=== PATIENT | female | born 1970 | race Caucasian/White ===

== ENCOUNTER 2017-12-23 10:37 | Outpatient (CLI) | payer OTHER ==
--- NOTE | 2017-12-30 15:49 | MMO ---
BILATERAL SCREENING MAMMOGRAMS: Date: 12/23/17 Comparison made to prior exam from [facility] dated 2014. This patient's mammogram was interpreted with the assistance of computer-aided detection. FINDINGS: Heterogeneously dense glandular pattern. There are scattered benign-appearing calcifications. No evid ence of mass or distortion. Given the differences in technique on the comparison exam, there does not appear to be significant change. Recommend one year follow-up. IMPRESSION: BIRADS 2: Benign Finding(s) POS: GILBERTO
== END 2017-12-23 10:38 | disposition home or self-care (01) ==
LOC: SCSMAMMO 10:37
PROVIDERS: ATTEND Family Medicine
DX: Z12.31 Encounter for screening mammogram for malignant neoplasm of breast (principal)
CPT/HCPCS: 77067

== ENCOUNTER 2018-09-02 09:41 | Outpatient (CLI) | payer OTHER ==
--- NOTE | 2018-09-02 11:55 | ULT ---
ULTRASOUND ABDOMEN: Date: 09/01/18 HISTORY: Abdominal pain, nausea and vomiting. FINDINGS: The liver demonstrates increased echogenicity consistent with fatty infiltration. There is a 1.9 cm c yst in the right lobe of the liver. No intrahepatic ductal dilatation is seen. The spleen, gallbladde r, left kidney, and visualized portions of the pancreas, aorta, and IVC appear normal. There is a 1.4 cm cyst in the right kidney. No free fluid is seen. No hydronephrosis noted on either side. IMPRESSION: 1. Fatty liver. 2. Right liver lobe cyst. 3. Right renal cyst. 4. No evidence of cholelithiasis. POS: C
== END 2018-09-02 09:42 | disposition home or self-care (01) ==
LOC: ULT 09:41
PROVIDERS: ATTEND Internal Medicine Gastroenterology
DX: R11.2 Nausea with vomiting, unspecified (principal); R10.9 Unspecified abdominal pain; K76.0 Fatty (change of) liver, not elsewhere classified; N28.1 Cyst of kidney, acquired; K76.89 Other specified diseases of liver
CPT/HCPCS: 76700

== ENCOUNTER 2018-09-07 12:21 | Day surgery (SDC) | payer OTHER ==
[2018-09-06 14:16] VITALS: BMI 21.7
--- NOTE | 2018-09-06 14:44 | HP ---
DATE OF ADMISSION: 09/07/2018 HISTORY OF PRESENT ILLNESS: This is a 48-year-old female referred to me for evaluation of recurrent nausea and vomiting. The patient has these symptoms almost an year. Every morning, she wakes up with upset stomach and she gags and vomits. The rest of the day, she feels fine. She has no abdominal pain. She has a history of chronic acid reflux. No dysuria or odynophagia. The symptoms are difficult to explain. The patient to undergo EGD, because of the above reason. ALLERGIES: None. MEDICAL ILLNESS: 1. Chronic acid reflux. 2. Chronic anxiety and depression. 3. Asthma. 4. Panic attack. 5. Sinus tachycardia. . PHYSICAL EXAMINATION: GENERAL: She is thin built, appears comfortable. VITAL SIGNS: Pulse is 70, blood pressure 110/70. HEENT: Conjunctivae are clear. CARDIOVASCULAR: First and second heart sounds are normal. LUNGS: Clear to auscultation. ABDOMEN: Soft to palpate. No organomegaly. No tenderness. No masses. ADMITTING DIAGNOSIS: A 48-year-old female with persistent nausea and vomiting with no abdominal pain. The patient will undergo EGD. MTDD
[2018-09-07] MEDS ORDERED: Lidocaine 1% PF 5 ML VIAL ONE (17:11)
[2018-09-07] MEDS ORDERED: PROPOFOL 200 MG/20 ML VIAL ONE (17:11)
--- NOTE | 2018-09-07 23:47 | OP ---
DATE OF PROCEDURE: 09/07/2018 OPERATIVE PROCEDURE: Esophagogastroduodenoscopy with biopsy. PREOPERATIVE DIAGNOSIS: A 48-year-old, female with mild abdominal discomfort, persistent nausea and vomiting. Nausea and vomiting occurs mostly in the morning. The patient is undergoing an esophagogastroduodenoscopy. POSTOPERATIVE DIAGNOSES: 1. Normal esophageal mucosa. 2. Normal gastroesophageal junction. 3. Gastric mucosa, mildly hyperemic, and nonspecific. 5. Normal duodenum. PROCEDURE IN DETAIL: The patient was placed on her left lateral position and was given sedation by Anesthesia Department. A Pentax video gastroscope under direct vision was passed down the oropharynx, past the GE junction, into the stomach and subsequently into the descending duodenum. The esophageal mucosa appeared normal. The GE junction, no pathology seen. Retroflexion failed to show any pathology in the fundus, cardia. The gastric body and antrum was mildly hyperemic and edematous. mucosa was seen .. The duodenal bulb, descending duodenum, no pathology seen. The stomach was decompressed and the scope removed. DISCHARGE PLANNING: This is a 48-year-old, female with abdominal pain , nausea, and vomiting. The patient underwent an EGD and the EGD was basically negative. The patient's abdominal sonogram largely showed negative for any pathology. DISCHARGE RECOMMENDATIONS: 1. The patient advised to increase alprazolam to 0.5 mg p.o. twice a day. 2. Continue Paxil 20 once a day. 3. We will await the gastric biopsy and decide further course of treatment. MTDD
== END 2018-09-07 16:58 | disposition home or self-care (01) ==
LOC: SDC 12:21
PROVIDERS: ATTEND Internal Medicine Gastroenterology
PROC: 0DB68ZX Excision of Stomach, Via Natural or Artificial Opening Endoscopic, Diagnostic (ICD-10-PCS; principal; 2018-09-07)
DX: R11.2 Nausea with vomiting, unspecified (principal); K21.9 Gastro-esophageal reflux disease without esophagitis; F41.9 Anxiety disorder, unspecified; F32.9 Major depressive disorder, single episode, unspecified; J45.909 Unspecified asthma, uncomplicated; F41.0 Panic disorder [episodic paroxysmal anxiety]; Z79.899 Other long term (current) drug therapy
CPT/HCPCS: 88305; 88312; J2001; J2704

== ENCOUNTER 2018-11-08 18:15 | Emergency (ER) | payer OTHER ==
[2018-11-08] MEDS ORDERED: EPINEPHrine 1 MG/ML AMP ONE (18:31)
[2018-11-08] MEDS ORDERED: Famotidine/PF 20 mg/2ml Vial ONE (18:41)
[2018-11-08] MEDS ORDERED: methylPREDNISolone Sod Succ/PF 125 MG/2 ML VIAL ONE (18:41)
[2018-11-08] MEDS ORDERED: diphenhydrAMINE 50 MG/ML VIAL ONE (18:41)
[2018-11-08] MEDS ORDERED: Water For Inject, Bacteriostat 30 ML ONE (18:42)
[2018-11-08] MEDS ORDERED: Sodium Chloride For Inhalation 0.9% 3 ML NEB ONE (18:44)
[2018-11-08] MEDS ORDERED: Albuterol Sulfate 2.5 mg/0.5 ml Neb ONE (18:44)
== END 2018-11-08 22:51 | disposition home or self-care (01) ==
LOC: SCSER 18:15
DX: L50.0 Allergic urticaria (principal); E78.5 Hyperlipidemia, unspecified; F41.9 Anxiety disorder, unspecified; F32.9 Major depressive disorder, single episode, unspecified; Z79.899 Other long term (current) drug therapy
CPT/HCPCS: 93005; 94640; 96361; 96372; 96374; 96375; J0171; J1200; J2930; J7611; S0028

== ENCOUNTER 2018-11-10 08:39 | Outpatient (CLI) | payer OTHER ==
[2018-11-10] MEDS ORDERED: Iopamidol 300 61% 100 ML VIAL FS ONE (09:00)
--- NOTE | 2018-11-10 11:01 | CT ---
PRE AND POST CONTRAST ENHANCED CT BRAIN: HISTORY: Repeated falls. TECHNIQUE: The patient received 100 mL of Isovue-300, given IV. Pre and post contrast enhanced CT images of the brain were obtained. FINDINGS: The images demonstrate mild cortical atrophy and deep white matter ischemic changes. No evidence of acute intracranial masses, hemorrhages, strokes, or contusions seen. No abnormal areas of intracrani al enhancement seen. IMPRESSION: Unremarkable pre and post contrast enhanced CT images of the brain. POS: GILBERTO
== END 2018-11-10 08:40 | disposition home or self-care (01) ==
LOC: SCSCT 08:39
PROVIDERS: ATTEND Family Medicine
DX: R29.6 Repeated falls (principal)
CPT/HCPCS: 70470

== ENCOUNTER 2020-05-07 10:30 | Outpatient (CLI) | payer BC ==
--- NOTE | 2020-05-07 12:52 | ULT ---
GALLBLADDER ULTRASOUND: HISTORY: Right upper quadrant pain. FINDINGS: Real-time imaging of the right upper quadrant shows some mobile echogenic nonshadowing density within the gallbladder lumen suggestive of sludge. The common bile duct is 5 mm. The liver shows a very c oarse echogenic texture. There is a small septated cyst measuring in the 1.4 cm range adjacent to th e gallbladder, and this is difficult to visualize. It is possible that this just represents an area of focal fatty sparing. There is some ascites noted. The right kidney is normal in size and not obstructed. Pancreas is obscured. IMPRESSION: Coarse echogenic texture to the liver suggestive of fatty changes could indicate cirrhosis. The bord er of the liver mildly nodule and there is mild ascites present. POS: CARLOS
== END 2020-05-07 10:31 | disposition home or self-care (01) ==
LOC: SCSULT 10:30
PROVIDERS: ATTEND Physician Assistant Medical
DX: K70.31 Alcoholic cirrhosis of liver with ascites (principal); R93.2 Abnormal findings on diagnostic imaging of liver and biliary tract
CPT/HCPCS: 76705

== ENCOUNTER 2020-05-16 07:40 | Day surgery (SDC) | payer BC ==
[2020-05-15 14:43] VITALS: BMI 19.3
[2020-05-16] MEDS ORDERED: Sodium Bicarbonate 2.5 MEQ/5 ML VIAL ONE (08:40)
[2020-05-16] MEDS ORDERED: Lidocaine 1% PF 5 ML VIAL ONE (08:40)
[2020-05-16 10:34] VITALS: BP 110/64; TEMP 98.1
[2020-05-16 11:11] LABS: RBC Count-Automated (BF) 183 /cu.mm; WBC/Nucleated-Auto (BF) 80 uL
--- NOTE | 2020-05-16 11:29 | ULT ---
ULTRASOUND-GUIDED PARACENTESIS DIAGNOSTIC AND THERAPEUTIC: DATE: 05/16/2020 HISTORY: 49-year-old female with symptomatic ascites: Abdominal distention. 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 First-time paracentesis. TECHNIQUE: Signed informed consent obtained. A four-quadrant survey of abdomen performed. Site selected for puncture: right lower quadrant near midline far inferiorly towards pelvis. Overlying skin prepared and draped in usual sterile fashion. 25-gauge needle used to apply buffered lidocaine superficially and deeply. 5 Frisian Yueh catheter with stylette advanced into the pocket of free intraperitoneal fluid. After drainage, the Yueh catheter was removed. Patient tolerated the procedure well. No complications. 1 bag of ascites fluid was sent to laboratory for analysis. FINDINGS: Volume of ascites prior to procedure:Moderate-large.. Volume of ascites fluid in the drainage pocket after drainage:moderate. Volume of ascites fluid drained:3200 mL Appearance of ascites fluid:nonhemorrhagic, straw-colored. IMPRESSION: Successful therapeutic paracentesis, with drainage of 3.2 L of ascites fluid.
[2020-05-16 11:38] LABS: BF Color Yellow; Body Fluid Source Ascites Body Fluid; Clarity Hazy (Clear); Tube # EDTA
[2020-05-16 11:43] LABS: BF Segmented Neutrophils 3 %; Cell Count Non Hematic 88 %; Lymphocytes 9 %
== END 2020-05-16 09:38 | disposition home or self-care (01) ==
LOC: ULT 07:40
PROVIDERS: ATTEND Internal Medicine
PROC: 0W9G3ZX Drainage of Peritoneal Cavity, Percutaneous Approach, Diagnostic (ICD-10-PCS; principal; 2020-05-16)
PROC: BW40ZZZ Ultrasonography of Abdomen (ICD-10-PCS; principal; 2020-05-16)
DX: K70.31 Alcoholic cirrhosis of liver with ascites (principal); F17.210 Nicotine dependence, cigarettes, uncomplicated; F10.11 Alcohol abuse, in remission; K21.9 Gastro-esophageal reflux disease without esophagitis; J45.909 Unspecified asthma, uncomplicated; F41.9 Anxiety disorder, unspecified; F32.9 Major depressive disorder, single episode, unspecified; Z79.899 Other long term (current) drug therapy
CPT/HCPCS: 49083; 82042; 84155; 85060; 88112; 88305; 89051

== ENCOUNTER 2020-06-22 04:54 | Inpatient (IN) | payer BC, OTHER ==
[2020-06-22] MEDS ORDERED: cefTRIAXone\\ROCEPHIN 1 GM VIAL ONE (05:41)
[2020-06-22 06:02] LABS: Acetaminophen Less than 6.0 mcg/mL (10.0-30.0); Alcohol Less than 10 mg/dL (Less than 10); CK (CPK) 246 U/L (29-168); Salicylate Less than 8.0 mg/dL (15.0-30.0)
[2020-06-22 06:03] LABS: ALT (SGPT) 28 U/L (8-55); AST (SGOT) 62 U/L (5-34); Albumin 2.5 g/dL (3.5-5.0); Alkaline Phosphatase 58 U/L (40-110); Anion Gap 27 mmol/L (10-20); BUN (Urea Nitrogen) 107 mg/dL (7.0-18.7); Bilirubin, Total 1.1 mg/dL (0.2-1.2); Calc. Creatinine Clearance 0 mL/min (70-130); Calcium 7.9 mg/dL (7.8-10.44); Carbon Dioxide 12 mmol/L (22-29); Chloride 93 mmol/L (98-107); Estimated GFR-MDRD 18; Globulin 2.6 g/dL (2.4-3.5); Glucose 105 mg/dL (70-105); Lipase 276 U/L (8-78); Protein, Total 5.1 g/dL (6.0-8.3); Sodium 125 mmol/L (136-145)
[2020-06-22 06:09] LABS: Potassium 6.8 mmol/L (3.5-5.1)
[2020-06-22] MEDS ORDERED: Multivitamins, Adult 10 ML, Thiamine HCl 100 MG, Folic Acid 1 MG in Dextrose 5 %-0.45 %... IV SCH (06:15)
[2020-06-22] MEDS ORDERED: Octreotide Acetate 50 MCG/ML AMP ONE (06:23)
[2020-06-22] MEDS ORDERED: Pantoprazole 40 MG VIAL ONE (06:23)
[2020-06-22 06:25] LABS: CKMB 19.5 ng/mL (0-6.6)
[2020-06-22 06:31] LABS: Hemoglobin 3.7 g/dL (12.0-16.0); Mean Corpuscular HGB CONC 31.6 g/dL (32.0-36.0); Mean Corpuscular Hemoglobin 34.7 pg (27.0-31.0); Mean Platelet Volume 8.8 fL (7.4-10.4); Platelet Count 192 thou/uL (130-400); RBC Distribution Width 15.6 % (11.5-14.5); Red Blood Cell (RBC) Count 1.06 mill/uL (4.20-5.40); White Blood Cell (WBC) Count 21.3 thou/uL (4.8-10.8)
[2020-06-22 06:39] LABS: Anion Gap 28 mmol/L (10-20); BUN (Urea Nitrogen) 105 mg/dL (7.0-18.7); Calc. Creatinine Clearance 0 mL/min (70-130); Calcium 7.8 mg/dL (7.8-10.44); Carbon Dioxide 11 mmol/L (22-29); Chloride 94 mmol/L (98-107); Estimated GFR-MDRD 18; Glucose 91 mg/dL (70-105); Sodium 126 mmol/L (136-145)
[2020-06-22] MEDS ORDERED: Octreotide Acetate 50 MCG/ML AMP SLOW IVP SCH (06:45)
[2020-06-22] MEDS ORDERED: Octreotide Acetate 1,250 MCG in Sodium Chloride 0.9% 250 ML 250 ML IVPB SCH (06:45)
[2020-06-22 06:50] LABS: Band 10 % (5-11); Eosinophils 1 % (0-10); Lymphocytes 14 % (21-51); MDiff Complete? YES; Macrocytosis SLIGHT = 6-15 cells (100X) (0-5/hpf); Monocytes 10 % (0-10); Neutrophil 65 % (42-75); Platelet Morphology Comment Appears Adequate
[2020-06-22 06:53] LABS: Reflex for Review?? YES
[2020-06-22 06:57] LABS: Potassium 6.8 mmol/L (3.5-5.1)
[2020-06-22 07:01] LABS: INR-International Normal Ratio 2.3; PTT 31.2 sec (22.9-36.1); Prothrombin Time 25.2 sec (12.0-14.7)
[2020-06-22] MEDS ORDERED: Rocuronium Bromide 10 MG/ML (10ML VIAL) ONE (07:10)
[2020-06-22] MEDS ORDERED: Fentanyl 20 mcg/ml (100 ml CADD) IV PRN (07:45)
[2020-06-22] MEDS ORDERED: Calcium Chloride 1 GM/10 ML Abboject SYRINGE ONE (07:46)
[2020-06-22] MEDS ORDERED: Dextrose 50% Abboject 50 ML SYRINGE ONE (07:46)
[2020-06-22] MEDS ORDERED: Sodium Bicarbonate 2.5 MEQ/5 ML VIAL ONE (07:46)
[2020-06-22] MEDS ORDERED: Insulin Regular 300 UNITS/3 ML VIAL ONE (07:46)
--- NOTE | 2020-06-22 07:46 | RAD ---
Exam: Chest one view HISTORY:Status post intubation. Comparison: 06/22/2020 5:36 AM FINDINGS: Lines and tubes: Endotracheal tube 0.8 cm above the brenda. Nasogastric tube extends beyond the diaph ragm. Distal tip is not seen. Cardiac silhouette: Normal Aorta: Unremarkable Pulmonary vessels: Normal Costophrenic angles: Clear LUNGS: No masses or consolidation. Pneumothorax: None Osseous abnormalities: None IMPRESSION: 1. Interval placement of endotracheal and nasogastric tube. Repositioning of the endotracheal tube is recommended. Findings conveyed to Dr. Hendricks 06/22/2020 at 7:42 AM Code CR
[2020-06-22 07:48] LABS: Bilirubin Negative (Negative); Blood, Urine Negative (Negative); Clarity Clear (Clear); Glucose, Urine (Dipstick) Normal (Negative); Ketone, Urine Negative (Negative); Leukocyte Negative Leu/uL (Negative); Nitrite Negative (Negative); Protein, Urine (Dipstick) Negative (Neg-Trace); Specific Gravity, Urine 1.014 (1.002-1.036); Urobilinogen Normal mg/dL (Less than 2)
--- NOTE | 2020-06-22 07:51 | RAD ---
Exam: Chest one view HISTORY:Altered mental status. Nausea and vomiting Comparison: None FINDINGS: Cardiac silhouette: Normal Aorta: Unremarkable Pulmonary vessels: Normal Costophrenic angles: Clear LUNGS: No masses or consolidation. Pneumothorax: None Osseous abnormalities: Rib fractures are noted. IMPRESSION: No acute cardiopulmonary process.
[2020-06-22 07:57] LABS: Medtox Reader # READER 4
[2020-06-22 07:58] LABS: Amphetamine Not Detected (NotDetected); Barbiturates Screen Not Detected (NotDetected); Benzodiazepine Screen Not Detected (NotDetected); Cocaine Metabolite Screen Not Detected (NotDetected); Medtox Control Line Valid? VALID (VALID); Methadone Not Detected (NotDetected); Methamphetamine Not Detected (NotDetected); Opiate Screen Not Detected (NotDetected); Oxycodone Screen Not Detected (NotDetected); Phencyclidine (PCP) Not Detected (NotDetected); THC/Cannabinoid Screen Not Detected (NotDetected); Tricyclic Screen Not Detected (NotDetected)
[2020-06-22 07:59] LABS: Actual Bicarbonate (HCO3a) 12.1 mEq/L (22-28); Analyzer IN Cardio ER; Base Excess (BEa) -14.3 mEq/L (-2.0 to +3.0); CO2 Tension 30.3 mmHg (35.0-45.0); Calcium, Ionized (arterial) 1.01 mmol/L (1.12-1.30); Carboxyhemoglobin (COHb) 0.5 gm% (0.0-3.0); O2 Tension (PaO2), arterial 174.7 mmHg (80.0-100.0)
--- NOTE | 2020-06-22 08:02 | CT ---
PRELIMINARY REPORT/[facility]/EMERGENCY AFTER HOURS PROCEDURE EXAM: CT Head Without Intravenous Contrast. 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 He states she has a history of cirrhosis. He states that pt has been lethargic X 1 week, TECHNIQUE: Axial computed tomography images of the head/brain without intravenous contrast. COMPARISON: None provided. FINDINGS: BRAIN: No acute intraparenchymal hemorrhage. No mass lesion. No CT evidence for acute territorial infarct. N o midline shift or extra-axial collection. VENTRICLES: No hydrocephalus. ORBITS: The orbits are unremarkable. SINUSES AND MASTOIDS: The paranasal sinuses and mastoid air cells are clear. SOFT TISSUES: No significant facial or scalp soft tissue swelling evident. No radiopaque foreign body is seen. BONES: No acute skull fracture. IMPRESSION: No acute intracranial abnormality. ELECTRONICALLY SIGNED BY: Abdon Flynn MD Jun 22, 2020 6:05:32 AM CDT This report is intended for review by the ordering physician only, in accordance of law. If you recei ve this report in error, please call [facility] at [phone]. FINAL REPORT Exam: Head CT without contrast HISTORY: Altered mental status. Nausea and vomiting. COMPARISON: 02/08/2016 FINDINGS: Hemorrhage: No intraparenchymal hemorrhage or extra-axial hematoma. Brain parenchyma: Cortical mariee-white matter differentiation is preserved. No mass effect or midline shift. Basilar cisterns are patent. Ventricular system: Ventricles and sulci are patent and symmetric. Calvarium: Intact. Sinuses and mastoid air cells: Adequate aeration. IMPRESSION: 1. This report is in agreement with initial report by [facility]. 2.No acute intracranial process. Transcribed Date/Time: 06/22/2020 10:02 AM
[2020-06-22 08:08] LABS: pH, Arterial 7.22 (7.35-7.45)
[2020-06-22 08:09] LABS: ALV-art Gradient 72.625 (0-20); Hemoglobin (Hb) 3.4 g/dL (12.0-16.0); Puncture Site L.R.
[2020-06-22 08:54] LABS: HBSAg Index 0.19 S/CO (0-0.99); Hep B Surf Ag Non-Reactive S/CO (NonReactive)
[2020-06-22] MEDS ORDERED: Propofol 1,000 MG/100 ML VIAL IV ONE (10:03)
[2020-06-22] MEDS ORDERED: Ondansetron PF 4 MG/2 ML Vial IVP PRN ×2 (10:04→10:27)
[2020-06-22] MEDS ORDERED: Ondansetron ODT 4 MG TAB PO PRN ×2 (10:05→10:27)
[2020-06-22] MEDS ORDERED: Pantoprazole 80 MG in Sodium Chloride 0.9% 100 ML IVPB SCH (10:15)
[2020-06-22] MEDS ORDERED: Sodium Chloride 0.9% 1,000 ML IV SCH (10:15)
[2020-06-22] MEDS ORDERED: Acetaminophen 650 MG Suppository PR PRN (10:27)
[2020-06-22] MEDS ORDERED: Senokot S 8.6-50 MG TAB PO PRN (10:27)
[2020-06-22] MEDS ORDERED: Acetaminophen 325 MG TAB PO PRN (10:27)
[2020-06-22 10:39] LABS: Lactic Acid 4.6 mmol/L (0.5-2.2)
[2020-06-22] MEDS ORDERED: Norepinephrine 8 MG/0.9% NS 250 ML ONE (12:15)
--- NOTE | 2020-06-22 12:46 | CON ---
DATE OF CONSULTATION: REASON FOR CONSULTATION: Hyperkalemia. HISTORY OF PRESENT ILLNESS: This is a 49-year-old lady with cirrhosis, presented to the hospital after feeling well, having nausea, vomiting and poor p.o. intake, was noted to have a potassium of 6.5 and a hemoglobin of 3.7. I was consulted for urgent dialysis. PAST MEDICAL HISTORY: Significant for cirrhosis, hyperlipidemia, ascites drainage. SOCIOECONOMIC HISTORY: History of alcohol abuse. FAMILY HISTORY: Negative for ESRD. ALLERGIES: REVIEWED. HOME MEDICATIONS: List reviewed. REVIEW OF SYSTEMS: Unobtainable. The patient is intubated. PHYSICAL EXAMINATION: GENERAL: On examination, the patient is resting. VITAL SIGNS: Afebrile, pulse 85, breathing 16, blood pressure . HEENT: Head normocephalic and atraumatic. Eyes intact, no ulcers. Nose intact, no ulcers. Ears intact, no ulcers. Neck: Supple. No JVD. Chest: Symmetrical and clear. Cardiovascular: Shows S1 and S2, no rub, no murmur. Gastrointestinal: Abdomen is soft, bowel sounds positive. Extremities: Show no edema or ulcers. Skin: Shows no rash or petechiae. Musculoskeletal: Shows no joint swelling or stiffness. Genitourinary: Shows no Blanco or CVA tenderness. Neurologic: The patient is resting. LABORATORY DATA: Labs show hemoglobin is 3.7, potassium is 6.8, lactic acid is 4.6. ASSESSMENT: 1. Acute kidney injury on chronic kidney disease. 2. Hyperkalemia. 3. Acidosis. . 4. Anemia. We will transfuse 4 units of blood with red blood cells and lactic acidosis. Consider GI and surgery consultation. Job ID: [id number]
[2020-06-22] MEDS ORDERED: Morphine 2 MG/ML VIAL SLOW IVP PRN (13:06)
[2020-06-22] MEDS ORDERED: Lorazepam 2 MG/ML VIAL SLOW IVP PRN (13:06)
[2020-06-22] MEDS ORDERED: fentaNYL Citrate/PF 2,000 MCG in Sodium Chloride 0.9% 60 ML IV SCH (13:06)
[2020-06-22] MEDS ORDERED: DISCONTINUE PREVIOUS NARCOTIC PAIN MEDICATIONS AND BENZODIAZEPINES FS SCH (13:06)
[2020-06-22] MEDS ORDERED: Fentanyl BOLUS 250 ML IVPB PRN (13:06)
[2020-06-22] MEDS ORDERED: Propofol BOLUS 1,000 MG/100 ML VIAL IV PRN (13:06)
--- NOTE | 2020-06-22 13:23 | CON ---
DATE OF CONSULTATION: 06/22/2020 REASON FOR CONSULTATION: Elevated lactate with concern for bowel ischemia. HISTORY OF PRESENT ILLNESS: Ms. Riley is a 49-year-old woman with newly-diagnosed cirrhosis, who was brought to the emergency room by family after becoming "out of it" and confused. She had been having problems with nausea for about 1 day. She had not been complaining of abdominal pain, but she did become more lethargic and confused with time. She did seem to become uncomfortable right before her brought her to the hospital, but she could not really explain what was going on or what was bothering her at that point and did not even recognize him. She was evaluated in the emergency room and found to have a very low blood pressure with systolic in the 70s and tachycardia, melena in her rectal vault, and severe anemia. She was resuscitated and transfused and had a dialysis catheter placed due to an elevated potassium of 6.8 and acutely elevated BUN and creatinine. Her said that when she had labs checked about a week ago, everything looked okay. She was intubated in the emergency room due to decreased mental status. She received 1 unit of packed red blood cells in the emergency room with improvement in her blood pressure before transfer to the ICU, and when I saw her , she was getting ready to begin dialysis and further transfusion. She does not have any history of respiratory complaints prior to this admission and had not been complaining of any abdominal pain, although as her reported she did seem to be in a lot of discomfort right before he brought her in, but could not explain what was bothering her. She has not had any fevers or chills and is unable to give any history at all due to being intubated and having a severely reduced mental status even before intubation. PAST MEDICAL HISTORY: Cirrhosis, recently diagnosed and attributed to heavy alcohol use. Also, has a history of hyperlipidemia and asthma. PAST SURGICAL HISTORY: No past surgical history. SOCIAL HISTORY: Heavy alcohol use, about 1 bottle of wine per day, but no drug or tobacco use. ALLERGIES: NO KNOWN DRUG ALLERGIES. OUTPATIENT MEDICATIONS: Not recorded. PHYSICAL EXAMINATION: VITAL SIGNS: When I saw the patient, her heart rate was in the 110s and her blood pressure was about 110s systolic over 70s diastolic. She was intubated on the ventilator and the nurse was getting ready to start propofol, but she had not yet begun the sedation protocol. According to the ER nurse, who was transferring her, she got Rocuronium about 3 hours before I saw the patient at the time of her intubation, but no paralytics since that time. O2 sats are 100% on the ventilator. She is completely nonresponsive and does not withdraw or respond to painful stimuli or open her eyes. HEENT: Unremarkable. Pupils are equal. No external evidence of trauma. She has a gastric tube in place with bloody drainage in the tubing. NECK: Supple without lymphadenopathy or thyroid nodules. HEART: Tachycardic, but regular. I do not appreciate any murmurs, rubs, or gallops. LUNGS: Clear to auscultation bilaterally without crackles or wheezes. ABDOMEN: Soft and nondistended. She does not exhibit any tenderness to deep palpation. I do not appreciate any masses or hernias. Bowel sounds are present. EXTREMITIES: Somewhat cool with somewhat delayed capillary refill. I do not appreciate pedal pulses at this time, but she has no evidence of chronic ischemia. SKIN: Her skin is normal without ulceration or gangrene. NEURO AND PSYCHIATRIC: Unable to be performed due to the patient's intubated status. IMAGING DATA: CT of the head did not show any acute abnormalities. Chest x-ray does not show any acute cardiopulmonary process. ASSESSMENT AND PLAN: Cirrhotic woman with catastrophic upper GI bleed and hemorrhagic shock with lactic acidosis resulting. Her initial lactate was 11, and after receiving fluids and 1 unit of blood, came down to around 4. I cannot exclude the possibility of ischemic bowel, but there are no obvious signs on physical examination; however, the patient's neurologic status is such that her exam is very limited even without sedation, which has been minimal. When I saw her, she was not stable to take to the operating room and required emergent dialysis and further transfusion. Her hematocrit had only gone up to 17 after her initial transfusion and the nurses were in the process of starting additional packed red blood cell transfusions. I will continue to follow this patient with the inside polisher, patrol inspector, and social director. I have discussed her care with all three of these service providers and also discussed her clinical situation and plan of care with her , who is at the bedside. We are going to continue to resuscitate her and then re-evaluate. Since her lactate is falling, I do not anticipate an emergent surgery to evaluate for ischemic bowel. Hopefully, she does not have any active bleeding beyond what can be controlled endoscopically as she is currently a poor surgical candidate, but if need be, her does want everything possible done to try to preserve her life. She is critically ill with a very poor prognosis and I will continue to follow her as an inpatient. Job ID: [id number] MTDD
[2020-06-22 13:56] LABS: Hemoglobin 10.7 g/dL (12.0-16.0)
[2020-06-22] MEDS: Propofol 1,000 MG/100 ML VIAL IV PRN ×2 (14:56→17:57)
[2020-06-22 15:17] LABS: Anion Gap 10 mmol/L (10-20); BUN (Urea Nitrogen) 41 mg/dL (7.0-18.7); Calc. Creatinine Clearance 36 mL/min (70-130); Calcium 7.3 mg/dL (7.8-10.44); Carbon Dioxide 26 mmol/L (22-29); Chloride 102 mmol/L (98-107); Estimated GFR-MDRD 46; Glucose 122 mg/dL (70-105); Potassium 3.9 mmol/L (3.5-5.1); Sodium 134 mmol/L (136-145)
--- NOTE | 2020-06-22 17:27 | CON ---
DATE OF CONSULTATION: HISTORY OF PRESENT ILLNESS: Manjinder Riley is a 49-year-old female, brought into the hospital with altered mental status. Blood pressure 72 systolic, pulse 109. She has diagnosis of cirrhosis from longstanding history of alcohol abuse. Apparently, she has been vomiting nonstop. Does take lactulose. She was intubated in the ER by the ER physician with multiple medical issues. She now is undergoing emergency dialysis. It appears because of elevated potassium, lactic acidosis. No additional information obtained at this time. PAST MEDICAL HISTORY: Alcoholic liver disease, severe anemia, asthma, hyperlipidemia. PREVIOUS SURGERIES: Endoscopy. SOCIAL HISTORY: Heavy alcohol abuse, one bottle of wine per day. No tobacco abuse. She underwent a recent paracentesis and 320 mL of fluid was removed. REVIEW OF SYSTEMS: At this stage is unobtainable. MEDICINES: From home include: 1. Valacyclovir. 2. Clonazepam. 3. Spironolactone 50. 4. Naprosyn. 5. Lactulose. 6. Lasix. 7. Albuterol inhaler. She is now on: 1. Octreotide. 2. Protonix. 3. IV fluids. PHYSICAL EXAMINATION: VITAL SIGNS: Temperature was 94, she has been put on a warmer blanket; blood pressure 120/80; pulse 80; respirations 18; saturations 98%. CHEST: No wheezing. No crackles. CARDIAC: Normal S1 and S2. No gallops. ABDOMEN: No masses. LABORATORY DATA: INR is 2.3. PO2 is 174, pCO2 is 30, pH 7.22. Lactic acid is 4.6. BUN was normal. Drug screen was negative. White count is 21,000, H and H are 3 and 11, platelet count is 192. Sodium 126, potassium 6.8, BUN and creatinine are 105 and 2.73, most of it appears to be prerenal. BNP is normal. Chest x-ray is normal. ASSESSMENT: Shock secondary to hypovolemia and gastrointestinal bleed probably from cirrhosis, elevated potassium, lactic acidosis, hypothermia, alcohol abuse. PLAN: Several doctors have been consulted. She is undergoing emergency dialysis. Pulmonary/Critical Care is going to follow. She needs no pulmonary intervention. I agree with empiric broad-spectrum antibiotics at this stage for leukocytosis, which may very well be associated with stress. She had a paracentesis done recently, which was negative. Continue transfusion. Maintain H and H of at least 7 and 21. GI input. This is a consultation note, 45-minute critical care time. Job ID: [id number]
--- NOTE | 2020-06-22 17:31 | CON ---
DATE OF CONSULTATION: 06/22/2020 CHIEF COMPLAINT: Anemia, confusion. HISTORY OF PRESENT ILLNESS: Ms. Riley is a 49-year-old woman with known alcoholic cirrhosis, has been seen in the clinic initially by Dr. Doyle back in April. She quit drinking at that time once she was diagnosed. She underwent paracentesis on May 16, 2020. Couple of days ago on , Ms. Riley vomited a couple of times in the evening. Her did not view that, but she stated that she felt otherwise okay. On Wednesday, she complained of significant abdominal pain diffusely. She said that she was okay and did not have him drive her to the emergency room when he offered. Early this morning, however, she around 4 a.m. was noted to have severe confusion and her took her onto the emergency room. He did not see overt vomiting of blood or bloody stools that he is aware of. In the emergency room, she was found to have severe anemia with a hemoglobin of 3.7. She was confused and was given a dose of lactulose, but ultimately intubated due to the confusion for airway protection. She is noted to have acute renal failure, acidosis, and hyperkalemia. She has been started on blood transfusion and is going to undergo dialysis emergently. PAST MEDICAL HISTORY: Alcoholic cirrhosis, hyperlipidemia, asthma. PAST SURGICAL HISTORY: Recent paracentesis. FAMILY HISTORY: Negative for GI malignancy or liver disease known at this time. SOCIAL HISTORY: She quit drinking alcohol a month ago. She smokes. No drugs. ALLERGIES: NO KNOWN DRUG ALLERGIES. MEDICATIONS: Prior to admission; 1. Valacyclovir. 2. Clonazepam. 3. Spironolactone 50 mg daily. 4. Omeprazole. 5. Naproxen as needed. 6. Lactulose 20 g daily. 7. Furosemide 20 mg daily. 8. Vitamin D. 9. Folic acid. 10. Albuterol nebulizer as needed. In the hospital, she is on; 1. Ceftriaxone. 2. Octreotide. 3. Pantoprazole. REVIEW OF SYSTEMS: Unobtainable as she is sedated on the ventilator. PHYSICAL EXAMINATION: VITAL SIGNS: Temperature is 98.1, pulse 94, blood pressure 110/64. GENERAL: She is in no acute distress. She is not responsive. HEENT: Her eyes have no scleral icterus. Oropharynx is clear without lesions, with the endotracheal tube in place and OG tube in place. She has no cervical or supraclavicular lymphadenopathy. LUNGS: Clear to auscultation bilaterally. HEART: Regular rate and rhythm without murmur. ABDOMEN: Soft and nondistended currently. She has bowel sounds active. EXTREMITIES: No lower extremity edema. LABORATORY DATA: Sodium 125, potassium 6.8, chloride 93, CO2 of 12, BUN 107. Creatinine 2.8, up from baseline of 0.6 on 06/14/2020. Bilirubin 1.1, AST 62, ALT 28, alkaline phosphatase 58, albumin 2.5, lipase 276. INR 2.3. White blood cell count 21.3, hemoglobin 3.7, platelets 192. Plasma alcohol back on 05/01/2020 was 328 and this morning it was less than 10. IMPRESSION: 1. Decompensated alcoholic cirrhosis. 2. Acute gastrointestinal bleed, concerning for esophageal or gastric variceal bleed. Rectal exam now reveals liquid melenic stool passing from the rectum. 3. Hepatic encephalopathy. 4. Severe acidosis and hyperkalemia and acute renal failure. 5. Coagulopathy. RECOMMENDATIONS: 1. She is undergoing dialysis now. 2. Blood transfusion. She is receiving 4 units of transfusion and we will give a couple of units of FFP as well. 3. Octreotide drip. 4. Protonix drip. 5. We will plan EGD emergently once she finishes dialysis and gets transfused. 6. She remains on mechanical ventilation. Job ID: [id number]
[2020-06-22 17:41] LABS: SARS-CoV-2 MS2 Positive; SARS-CoV-2 N Gene Negative; SARS-CoV-2 S Gene Negative; SARS-CoV-2 by NAA Not Detected (NotDetected); SARS-CoV-2 orf1ab Negative
[2020-06-22 20:08] LABS: INR-International Normal Ratio 1.5; Prothrombin Time 17.9 sec (12.0-14.7)
[2020-06-22 20:19] LABS: Lactic Acid 1.9 mmol/L (0.5-2.2)
[2020-06-22] MEDS ORDERED: Norepinephrine 8 MG/0.9% NS 250 ML IVPB SCH (21:04)
--- NOTE | 2020-06-22 21:10 | OP ---
DATE OF PROCEDURE: 06/22/2020 PROCEDURE PERFORMED: Esophagogastroduodenoscopy with banding of bleeding esophageal varices. PREOPERATIVE DIAGNOSES: Gastrointestinal bleed, cirrhosis, anemia of acute blood loss, hemorrhagic shock. DESCRIPTION OF PROCEDURE: Informed consent was obtained from the patient. She was sedated per the Anesthesia Service. She is on a ventilator. Bite block was placed and the endoscope was advanced easily to the second portion of the duodenum and retroflexion was performed in the stomach. She had one large grade 3 varix with a red nipple at the distal esophagus just above the GE junction that appears to be the bleeding source. A band was placed over this varix and then also a little higher up on the same varix, where it was very large and soft. After banding the distal varix, no other varices were bandable. The stomach had a large amount of clot that was evacuated completely and this was all fresh red clot. The stomach did not have obvious gastric varices. The pylorus and first and second portions of the duodenum were unremarkable. She did have severe portal hypertensive gastropathy in the body and fundus. IMPRESSION: 1. Esophageal varices with hemorrhage, status post banding x2 of a large grade 3 varix with a red nipple sign. Good hemostasis was confirmed. 2. Portal hypertensive gastropathy. RECOMMENDATIONS: 1. Continue octreotide. 2. Continue proton pump inhibitor. 3. Follow trend of her hemoglobin. 4. Repeat EGD in a month for eradication of the varices. Job ID: [id number]
[2020-06-22] MEDS: Pantoprazole 80 MG in Sodium Chloride 0.9% 100 ML IVP SCH (21:42)
[2020-06-23 03:31] LABS: Anion Gap 14 mmol/L (10-20); BUN (Urea Nitrogen) 52 mg/dL (7.0-18.7); Calc. Creatinine Clearance 30 mL/min (70-130); Calcium 7.7 mg/dL (7.8-10.44); Carbon Dioxide 22 mmol/L (22-29); Chloride 103 mmol/L (98-107); Estimated GFR-MDRD 36; Glucose 90 mg/dL (70-105); Potassium 3.9 mmol/L (3.5-5.1); Sodium 135 mmol/L (136-145)
[2020-06-23 03:48] LABS: Anisocytosis SLIGHT = 6-15 cells (100X) (0-5/hpf); Band 26 % (5-11); Eosinophils 2 % (0-10); Hemoglobin 9.3 g/dL (12.0-16.0); Lymphocytes 16 % (21-51); MDiff Complete? YES; Mean Corpuscular HGB CONC 35.3 g/dL (32.0-36.0); Mean Corpuscular Hemoglobin 33.4 pg (27.0-31.0); Mean Corpuscular Volume 94.4 fL (78.0-98.0); Mean Platelet Volume 8.3 fL (7.4-10.4); Monocytes 5 % (0-10); Neutrophil 51 % (42-75); Nucleated RBC 2 % (0); Platelet Count 48 thou/uL (130-400); Platelet Morphology Comment Appears Decreased; RBC Distribution Width 15.8 % (11.5-14.5); Red Blood Cell (RBC) Count 2.79 mill/uL (4.20-5.40); White Blood Cell (WBC) Count 15.8 thou/uL (4.8-10.8)
[2020-06-23] MEDS: cefTRIAXone\\ROCEPHIN 1 GM in Sodium Chloride 0.9% 100 ML IVPB SCH (05:14)
--- NOTE | 2020-06-23 07:30 | HP ---
PRIMARY CARE PHYSICIAN: Dr. Colin Duke. CHIEF COMPLAINT: Intractable nausea and vomiting with cirrhosis. HISTORY OF PRESENT ILLNESS: This is a 49-year-old female, who was recently diagnosed with alcoholic cirrhosis about a month ago by Dr. Doyle as an outpatient. All history is currently taken from the chart as the patient is now intubated and her is no longer at the bedside. The patient was noted by her to have altered mental status and systolic pressure of 72, pulse at 119 when she arrived here. Per the 's report to the ER doctor, the patient had recently diagnosed with cirrhosis from alcohol and then two days ago she started vomiting and did not stop vomiting until Wednesday. She also had some symptoms of lethargy over the last couple of days. They did not note any blood or coffee-grounds emesis with the vomiting and did not notice any melena or bright red blood per rectum. The patient is reportedly compliant with her lactulose. She became acutely altered this morning, so was brought into the emergency room. In the ER, the patient was noted to be confused. She had a hemoglobin in the 3s. Due to her severe altered mental status, was not protecting her airway and so was eventually intubated and NG tube was placed and this showed about 800 mL of dark red aspirate. She also had a melenic bowel movement in the emergency room. She was transfused 2 units of packed red blood cells in the emergency room along with being started on octreotide and Protonix. She was given fluids and her pressures came up from 72 systolic to 110 systolic, but still tachycardic. She was noted to have a lot of severely elevated ammonia level at 212. She is also noted to have acute renal failure with creatinine of 2.8, where as normally her creatinine is normal and she had a severe lactic acidosis of 11.1 and hyperkalemia at 6.8 and a sodium level of 125. She also had a moderately elevated lipase at 276. Dr. Kaiser was consulted for GI as well as Dr. Early for Nephrology, and the patient is being admitted to the ICU. REVIEW OF SYSTEMS: Unable to obtain secondary to the patient's intubated status. All known positives are in the HPI. PAST MEDICAL HISTORY: 1. Alcoholic cirrhosis of the liver with ascites. 2. Hyperlipidemia. 3. Asthma. PAST SURGICAL HISTORY: None. PAST PSYCHIATRIC HISTORY: Anxiety and depression. SOCIAL HISTORY: The patient drinks a bottle of wine per day. No smoking or illicit drug use. She is and lives with her , who is her medical decision maker. His name is Hernan Riley. The patient is a full code. FAMILY HISTORY: Unable to obtain secondary to patient's altered mental status. ALLERGIES: NO KNOWN DRUG ALLERGIES. CURRENT MEDICATIONS: Unable to obtain complete list secondary to the patient's mental status, but does note that she has been on lactulose regularly, unknown dose. PHYSICAL EXAMINATION: VITAL SIGNS: Blood pressure initially 72/24, now up to 105/52 with a pulse of 111, respirations 18 on the vent, O2 saturation 100% on room air initially, now running 100% on the vent. GENERAL: This is a well-developed, well-nourished, white female, sedated on the vent. HEENT: Pupils bilaterally dilated, but equally round and reactive to light. Oropharynx with ET tube in place. NECK: Supple. No lymphadenopathy. No thyroid nodules or enlargement. HEART: Tachycardic, regular rhythm. No murmurs, rubs, or gallops. LUNGS: Clear to auscultation bilaterally. No wheezes, crackles, or rhonchi. ABDOMEN: Soft, mildly distended with hyperactive bowel sounds. No response to palpation. No organomegaly or masses noted. SKIN: No rashes or other lesions noted. No jaundice. EXTREMITIES: No clubbing, cyanosis, or edema. NEUROLOGIC: The patient currently sedated on the vent without response to pain. LABORATORY DATA: CBC; white blood cell count 21,000 with relatively normal differential, hemoglobin 3.7, hematocrit 11.7, platelet count 192. Coagulation profile; INR of 2.3. Complete metabolic panel is notable for a sodium of 125, potassium 6.8, chloride 93, carbon dioxide 12, anion gap of 27, BUN of 107, creatinine of 2.80, AST 62, and lipase 276 and the rest is normal. Creatine kinase 246, CK-MB 19.5, troponin 0.056. Lactic acid 11.1. TSH was normal. Recheck was virtually unchanged. Urinalysis negative. Tox screen negative. COVID test still pending. CT of the brain negative for acute abnormalities. Chest x- ray negative for infiltrates or other acute abnormalities. The repeat chest x-ray after intubation did show that the tube was a bit close to the brenda and had to be drawn back some. EKG done in the emergency room showed sinus tachycardia at 115 beats per minute. Vui-DV-tduraavte MS or other acute ischemic changes. ASSESSMENT: 1. Acute gastrointestinal bleed with severe anemia in the setting of cirrhosis, possible variceal bleed versus Kayleigh-Vicente tear from her vomiting. The patient is on octreotide blood and Protonix. Dr. Kaiser has been consulted. We will monitor her H and H closely. 2. Altered mental status, likely due to her severe anemia and accumulating pneumonia from the GI bleed. The patient has been intubated for airway protection due to her severe altered mental status. 3. Alcoholic cirrhosis. 4. Acute renal failure secondary to #[address] Early has been consulted. No evidence of significant hyperkalemia changes to her EKG. 5. Hyperlipidemia. 6. Gastrointestinal prophylaxis, on Protonix. 7. Deep venous thrombosis prophylaxis. The patient is already anticoagulated due to her severe liver disease. CODE STATUS: The patient is a full code. Should she be incapacitated, her is her medical decision maker. His name is Hernan Riley. Job ID: [id number] MTDD
[2020-06-23] MEDS: Pantoprazole 80 MG in Sodium Chloride 0.9% 100 ML IVP SCH (07:45)
[2020-06-23] MEDS: Octreotide Acetate 1,250 MCG in Sodium Chloride 0.9% 250 ML 250 ML IVPB SCH (08:10)
[2020-06-23 08:11] LABS: Actual Bicarbonate (HCO3a) 23.3 mEq/L (22-28); Base Excess (BEa) -0.7 mEq/L (-2.0 to +3.0); CO2 Tension 35.6 mmHg (35.0-45.0); Carboxyhemoglobin (COHb) 0.3 gm% (0.0-3.0); Hemoglobin (Hb) 9.8 g/dL (12.0-16.0); O2 Tension (PaO2), arterial 103.5 mmHg (80.0-100.0); Potassium - ABG Lab 3.76 mmol/L (3.70-5.30); pH, Arterial 7.43 (7.35-7.45)
--- NOTE | 2020-06-23 09:21 | PRG ---
DATE OF SERVICE: 06/23/2020 SUBJECTIVE: Her sedation was withheld. She is still not responsive. OBJECTIVE: VITAL SIGNS: Pulse 100, blood pressure 93/48, and sats 100%. I's and O's have been consistently positive. CHEST: Reveals no wheezing, no crackles. CARDIAC: Normal S1, S2. ABDOMEN: Soft. LABORATORY DATA: White count 15,000; H and H are 9 and 26; and platelet count 48,000. PO2 is 103, pCO2 . Creatinine is 1.5, BUN 52, potassium is normal. Bicarb is 22, normal. Blood cultures growing presumed Streptococcus species, possibly gram positive sepsis. ASSESSMENT: Respiratory failure. Shock. PLAN: Continue ceftriaxone. Hold on all sedation. Nutrition in the next 24 to 48 hours depending upon GI input. She underwent endoscopy and banding. I am going to start low-dose IV fluids. Prognosis is guarded. It is possible she might have sustained an anoxic injury. One-half hour of critical care time. Job ID: [id number]
[2020-06-23] MEDS: Sodium Chloride 0.9% 1,000 ML IV SCH ×2 (10:14→21:23)
--- NOTE | 2020-06-23 10:52 | PRG ---
DATE OF SERVICE: 06/23/2020 SUBJECTIVE: Ms. Riley had one black stool last night. She remains sedated on the ventilator. However, sedation has been discontinued and she is now responding to pain. She remains on Levophed at 4. OBJECTIVE: VITAL SIGNS: Temperature 99.2, pulse 111, blood pressure 108/53. GENERAL: She is in no acute distress. She is asleep on the ventilator. She has an endotracheal tube in place. LUNGS: Clear to auscultation bilaterally. HEART: Tachycardic. S1 and S2 without murmur. ABDOMEN: Soft, nondistended. Bowel sounds are present. EXTREMITIES: No lower extremity edema. LABORATORY DATA: White blood cell count 15.8, hemoglobin 9.3, platelets 48. INR 1.5. Creatinine 1.5. IMPRESSION: 1. Gastroesophageal hemorrhage secondary to bleeding esophageal varices. 2. End-stage liver disease secondary to alcohol. 3. Acute renal failure, improving. 4. Anemia of acute blood loss. RECOMMENDATIONS: 1. Continue octreotide. 2. Her pantoprazole can be changed to b.i.d. dosing. 3. Lactulose enema. Job ID: [id number]
[2020-06-23] MEDS ORDERED: Sodium Chloride 0.9% 250 ML 250 ML IVPB SCH (13:00)
--- NOTE | 2020-06-23 14:43 | PRG ---
DATE OF SERVICE: 06/23/2020 SUBJECTIVE: A 49-year-old female being seen for acute kidney injury. The patient is resting. OBJECTIVE: GENERAL: The patient is resting. VITAL SIGNS: Afebrile, pulse 75, breathing at 16, and blood pressure 109/61. HEENT: Head normocephalic and atraumatic. Eyes intact, no ulcers. Nose intact, no ulcers. Ears intact, no ulcers. NECK: Supple. No JVD. CHEST: Symmetrical and clear. CARDIOVASCULAR: Shows S1 and S2, no rub, no murmur. GASTROINTESTINAL: Abdomen is soft, bowel sounds positive. EXTREMITIES: Show no edema or ulcers. SKIN: Shows no rash or petechiae. MUSCULOSKELETAL: Shows no joint swelling or stiffness. GENITOURINARY: Shows no Blanco or CVA tenderness. NEUROLOGIC: Motor intact. Cranial nerves intact. LABORATORY DATA: Show hemoglobin of 9.3. Creatinine 1.5. ASSESSMENT AND PLAN: 1. Acute kidney injury, improved. 2. Hypertension, stable. 3. Anemia, stable. Medications based on GFR are appropriate. No indication for dialysis. Job ID: [id number]
--- NOTE | 2020-06-23 15:55 | PDOC.HOSPP ---
- Subjective Encounter Date: 06/23/20 Encounter Time: 10:25 Subjective: Pt is intubated. Sedation is turned off. Pt is responding and withdrawing from touch. - Objective Vital Signs & Weight: Vital Signs (12 hours) Temp Pulse Resp BP Pulse Ox 06/23/20 15:18 110 H 120/67 06/23/20 12:58 104 H 109/61 06/23/20 12:00 99.2 F 19 06/23/20 10:37 109 H 102/53 L 06/23/20 10:00 17 06/23/20 08:07 110 H 93/48 L 06/23/20 07:51 100 06/23/20 07:48 16 06/23/20 07:00 99.2 F 06/23/20 06:00 15 06/23/20 04:00 98.9 F 14 Weight Weight 92 lb 9.506 oz Most Recent Monitor Data Heart Rate from ECG 109 NIBP 106/54 NIBP BP-Mean 71 Respiration from ECG 15 SpO2 99 I&O: 06/22/20 06/23/20 06/24/20 06:59 06:59 06:59 Intake Total 3310.5 40.4 Output Total 912 435 Balance 2398.5 -394.6 Result Diagrams: 06/23/20 06:27 06/23/20 02:57 Hospitalist ROS - Review of Systems ROS unobtainable: due to endotracheal tube (Pt is intubated. Unable to assess.) - Medication Medications: Active Medications Generic Name Dose Route Start Last Admin Trade Name Freq PRN Reason Stop Dose Admin Ceftriaxone Sodium 1 gm/ 100 mls @ 200 mls/hr 06/23/20 06:00 06/23/20 05:14 Sodium Chloride IVPB 100 mls Q24HR JOSE Administration Octreotide Acetate 1,250 mcg/ 251.25 mls @ 10.05 mls/hr 06/22/20 10:30 08:10 Sodium Chloride IVPB 251.25 mls INF JOSE Administration 50 MCG/HR Fentanyl Citrate 2,000 mcg/ 100 mls @ 0 mls/hr 06/22/20 13:06 06/23/20 10:04 Sodium Chloride IV 07/22/20 13:06 100 mls INF JSOE Administration Protocol Per Protocol Sodium Chloride 1,000 mls @ 125 mls/hr 06/23/20 08:45 06/23/20 10:14 Normal Saline 0.9% IV 1,000 mls .Q8H JOSE Administration Lorazepam 2 mg 06/22/20 13:06 06/22/20 13:39 Ativan SLOW IVP 07/22/20 13:06 2 mg Q1H PRN Administration Breakthrough agitation Propofol 1,000 mg 06/22/20 13:06 06/22/20 17:57 Diprivan IV 07/22/20 13:06 1,000 mg INF PRN Administration TO ACHIEVE GOAL RASS Protocol Sodium Chloride 10 ml 06/22/20 21:00 06/23/20 07:45 Flush - Normal Saline IVF 10 ml Q12HR JOSE Administration - Exam General - other findings: Intubated and sedated Eye: PERRL ENT: normocephalic atraumatic Neck: supple, symmetric, no JVD, no thyromegaly Heart: no murmur, no gallops, no rubs Respiratory: CTAB, no wheezes, no rales, no ronchi Gastrointestinal: soft, non-tender, non-distended, normal bowel sounds Extremities: no cyanosis, no clubbing, no edema Skin: no lesions Neurological - other findings: Unable to assess Musculoskeletal: no muscle wasting Psychiatric - other findings: Intubated. Sedation is turned off. Pt is withdrawing from touch. Hosp A/P (1) Acute respiratory failure Code(s): J96.00 - ACUTE RESPIRATORY FAILURE, UNSP W HYPOXIA OR HYPERCAPNIA Status: Acute Plan: Pt is currently intubated. Cont supportive care. Wean as tolerated. PCCM on board. (2) Anemia Code(s): D64.9 - ANEMIA, UNSPECIFIED Status: Acute Qualifiers: Anemia type: other cause Qualified Code(s): D62 - Acute posthemorrhagic anemia Plan: S/p 4 units of PRBC. Cont to monitor Hg. (3) Cirrhosis Code(s): K74.60 - UNSPECIFIED CIRRHOSIS OF LIVER Status: Acute Qualifiers: Hepatic cirrhosis type: alcoholic cirrhosis (4) GIB (gastrointestinal bleeding) Code(s): K92.2 - GASTROINTESTINAL HEMORRHAGE, UNSPECIFIED Status: Acute Plan: s/p EGD with varices noted and banded. Cont PPI and Octreotide. F/u with further GI recs. (5) Varices, esophageal Code(s): I85.00 - ESOPHAGEAL VARICES WITHOUT BLEEDING Status: Acute Qualifiers: Esophageal varices type: unspecified type Plan: s/p banding. Cont PPI and Octreotide. - Plan DVT proph w/SCDs PPx: SCDs and PPI. CODE: FULL. Dispo: Cont current mgt.
--- NOTE | 2020-06-23 20:54 | PDOC.GSPN ---
Surgery Progress Note: Subj - Subjective Narrative: Patient seen on morning rounds. She had been taken off sedation but was not yet responding to painful stimuli or following commands. Her Levophed has been weaned to off and she was maintaining good blood pressures and urine output. Lab work was improved and lactic acidosis resolved. Abdomen was soft and nondistended with bowel sounds present and no apparent tenderness to palpation. Assessment/plan: Cirrhosis with catastrophic hemorrhage and resulting shock. Bleeding controlled by esophageal variceal banding by Dr. Kaiser. Lactic acidosis has resolved with resuscitation and ischemic bowel of any clinical significance is unlikely. I will follow-up with the patient when she is more awake for a more complete exam but do not anticipate any surgical intervention will be necessary. Surgery Progress Note: Obj - Vital signs Vital signs: Vital Signs - Most Recent Temp Pulse Resp BP Pulse Ox 98.9 F 108 H 17 110/63 100 06/23/20 20:00 06/23/20 18:34 06/23/20 20:00 06/23/20 18:34 06/23/20 07:51 Surgery Progress Note: Results - Labs Result Diagrams: 06/23/20 06:27 06/23/20 02:57
[2020-06-23] MEDS: Pantoprazole 40 MG VIAL IVP SCH (21:23)
[2020-06-24] MEDS: Sodium Chloride 0.9% 1,000 ML IV SCH ×3 (02:40→16:08)
[2020-06-24] MEDS: cefTRIAXone\\ROCEPHIN 1 GM in Sodium Chloride 0.9% 100 ML IVPB SCH (05:25)
[2020-06-24 06:22] LABS: #Eosinphils 0.1 thou/uL (0.0-0.7); #Lymphocytes 1.4 thou/uL (1.20-3.40); #Monocytes 2.1 thou/uL (0.11-0.59); #Neutrophils 12.1 thou/uL (1.40-6.50); %Basophils 0.1 % (0.0-1.0); %Eosinophils 0.4 % (0.0-10.0); %Lymphocytes 9.1 % (21.0-51.0); %Monocytes 13.3 % (0.0-10.0); %Neutrophils 77.1 % (42.0-75.0); Hemoglobin 9.2 g/dL (12.0-16.0); Mean Corpuscular HGB CONC 33.3 g/dL (32.0-36.0); Mean Corpuscular Hemoglobin 31.9 pg (27.0-31.0); Mean Corpuscular Volume 95.9 fL (78.0-98.0); Mean Platelet Volume 7.4 fL (7.4-10.4); Platelet Count 72 thou/uL (130-400); RBC Distribution Width 16.4 % (11.5-14.5); White Blood Cell (WBC) Count 15.6 thou/uL (4.8-10.8)
[2020-06-24 06:48] LABS: ALT (SGPT) 136 U/L (8-55); AST (SGOT) 277 U/L (5-34); Albumin 2.3 g/dL (3.5-5.0); Alkaline Phosphatase 70 U/L (40-110); Anion Gap 10 mmol/L (10-20); BUN (Urea Nitrogen) 32 mg/dL (7.0-18.7); Bilirubin, Total 4.4 mg/dL (0.2-1.2); Calc. Creatinine Clearance 60 mL/min (70-130); Carbon Dioxide 24 mmol/L (22-29); Chloride 112 mmol/L (98-107); Estimated GFR-MDRD 82; Globulin 2.7 g/dL (2.4-3.5); Glucose 100 mg/dL (70-105); Potassium 3.8 mmol/L (3.5-5.1); Sodium 142 mmol/L (136-145)
[2020-06-24] MEDS: Pantoprazole 40 MG VIAL IVP SCH ×2 (07:59→22:32)
--- NOTE | 2020-06-24 07:59 | PDOC.HOSPP ---
- Subjective Encounter Date: 06/24/20 Encounter Time: 07:58 Subjective: intubated, responds to stimuli, does not follow directions - Objective Vital Signs & Weight: Vital Signs (12 hours) Temp Pulse Resp BP Pulse Ox 06/24/20 07:51 105 H 114/62 06/24/20 07:09 100 06/24/20 07:00 98.9 F 06/24/20 06:00 14 06/24/20 04:00 98.3 F 16 06/24/20 02:10 108 H 111/69 06/24/20 02:00 15 06/24/20 00:00 98.5 F 19 06/23/20 22:00 19 06/23/20 21:55 107 H 113/63 06/23/20 20:00 98.9 F 17 100 Weight Weight 92 lb 9.506 oz Most Recent Monitor Data Heart Rate from ECG 112 NIBP 106/58 NIBP BP-Mean 74 Respiration from ECG 14 SpO2 99 I&O: 06/23/20 06/24/20 06/25/20 06:59 06:59 06:59 Intake Total 3310.5 3082.9 Output Total 912 1545 75 Balance 2398.5 1537.9 -75 Result Diagrams: 06/24/20 06:03 06/24/20 06:03 Hospitalist ROS - Medication Medications: Active Medications Generic Name Dose Route Start Last Admin Trade Name Freq PRN Reason Stop Dose Admin Ceftriaxone Sodium 1 gm/ 100 mls @ 200 mls/hr 06/23/20 06:00 06/24/20 05:25 Sodium Chloride IVPB 100 mls Q24HR JOSE Administration Octreotide Acetate 1,250 mcg/ 251.25 mls @ 10.05 mls/hr 06/22/20 10:30 08:10 Sodium Chloride IVPB 251.25 mls INF JOSE Administration 50 MCG/HR Fentanyl Citrate 2,000 mcg/ 100 mls @ 0 mls/hr 06/22/20 13:06 06/23/20 10:04 Sodium Chloride IV 07/22/20 13:06 100 mls INF JOSE Administration Protocol Per Protocol Norepinephrine Bitartrate 250 mls @ 0 mls/hr 06/22/20 21:04 06/23/20 16:50 Levophed IVPB 250 mls INF JOSE Administration Protocol Titrate Sodium Chloride 1,000 mls @ 125 mls/hr 06/23/20 08:45 06/24/20 02:40 Normal Saline 0.9% IV Not Given .Q8H JOSE Lorazepam 2 mg 06/22/20 13:06 06/22/20 13:39 Ativan SLOW IVP 07/22/20 13:06 2 mg Q1H PRN Administration Breakthrough agitation Pantoprazole Sodium 40 mg 06/23/20 21:00 06/23/20 21:23 Protonix IVP 40 mg Q12HR JOSE Administration Propofol 1,000 mg 06/22/20 13:06 06/22/20 17:57 Diprivan IV 07/22/20 13:06 1,000 mg INF PRN Administration TO ACHIEVE GOAL RASS Protocol Sodium Chloride 10 ml 06/22/20 21:00 06/23/20 21:23 Flush - Normal Saline IVF 10 ml Q12HR JOSE Administration - Exam Eye: scleral icterus Neck: no JVD Heart: RRR, no murmur Respiratory: CTAB Gastrointestinal: soft, non-distended, normal bowel sounds Extremities: no edema Hosp A/P (1) Sepsis due to Streptococcus species with acute liver failure Code(s): A40.9 - STREPTOCOCCAL SEPSIS, UNSPECIFIED; R65.20 - SEVERE SEPSIS WITHOUT SEPTIC SHOCK; K72.00 - ACUTE AND SUBACUTE HEPATIC FAILURE WITHOUT COMA Status: Acute Qualifiers: Hepatic coma status: unspecified Severe sepsis shock status: with septic shock Qualified Code(s): A40.9 - Streptococcal sepsis, unspecified; R65.21 - Severe sepsis with septic shock; K72.00 - Acute and subacute hepatic failure without coma (2) Hepatic encephalopathy Code(s): K72.90 - HEPATIC FAILURE, UNSPECIFIED WITHOUT COMA Status: Acute (3) Cirrhosis, alcoholic Code(s): K70.30 - ALCOHOLIC CIRRHOSIS OF LIVER WITHOUT ASCITES Status: Chronic Qualifiers: Ascites presence: unspecified Qualified Code(s): K70.30 - Alcoholic cirrhosis of liver without ascites (4) Acute renal failure Status: Acute Qualifiers: Acute renal failure type: unspecified Qualified Code(s): N17.9 - Acute kidney failure, unspecified (5) Acute respiratory failure Code(s): J96.00 - ACUTE RESPIRATORY FAILURE, UNSP W HYPOXIA OR HYPERCAPNIA Status: Acute Qualifiers: Respiratory failure complication: hypoxia Qualified Code(s): J96.01 - Acute respiratory failure with hypoxia (6) GIB (gastrointestinal bleeding) Code(s): K92.2 - GASTROINTESTINAL HEMORRHAGE, UNSPECIFIED Status: Acute Qualifiers: GI bleed type/associated pathology: unspecified gastrointestinal hemorrhage type Qualified Code(s): K92.2 - Gastrointestinal hemorrhage, unspecified (7) Varices, esophageal Code(s): I85.00 - ESOPHAGEAL VARICES WITHOUT BLEEDING Status: Acute Qualifiers: Esophageal varices type: unspecified type Esophageal varices bleeding: with bleeding Qualified Code(s): I85.01 - Esophageal varices with bleeding - Plan intubated cont octretide cont rocephin transfuse prn monitor BMP, H&H< discuss with GI, [employer], etc
[2020-06-24] MEDS ORDERED: DC Sedation Protocol FS ONE (08:48)
--- NOTE | 2020-06-24 09:22 | PRG ---
DATE OF SERVICE: 06/24/2020 SUBJECTIVE: This morning, she is less encephalopathic, she is trying to get out of bed. OBJECTIVE: VITAL SIGNS: Temperature is 98 sats 100%. CHEST: Decreased breath sounds. No wheezing. CARDIAC: Normal S1, S2. No gallops. ABDOMEN: Soft. LABORATORY DATA: AST is 277. White count 15,000, H and H are stable, platelet count is 72,000. Cultures are negative. IMPRESSION: Respiratory failure, gastrointestinal bleed, metabolic encephalopathy. PLAN: We are going to extubate today. Avoid all sedation. Continue otherwise empiric antibiotics as possibly she may be septic. Continue octreotide. PT, nutrition. One-half hour of critical care time. Job ID: [id number]
[2020-06-24] MEDS: Octreotide Acetate 1,250 MCG in Sodium Chloride 0.9% 250 ML 250 ML IVPB SCH (11:18)
--- NOTE | 2020-06-24 12:52 | PDOC.GSPN ---
Surgery Progress Note: Subj - Subjective Narrative: Patient was extubated this morning. She is more awake but still very confused, not following commands and only answering some questions. She was unable to tell me if she is having any abdominal pain or nausea. She has very noisy respirations. Abdominal exam is limited as the patient tries to sit up and move around when I examined her. She is not grimacing or showing signs of obvious pain. She is slightly tachycardic but her blood pressure is good and her H&H is stable and other labs are overall improved although her LFTs have gone up which is not unexpected after significant GI bleed in a cirrhotic. Hopefully her mental status will continue to improve. From a surgical standpoint I do not think she had any clinically significant bowel ischemia and when she is more alert and at less risk of aspiration, it is okay from the surgical standpoint to begin a diet. I will continue to follow but do not anticipate need for surgery. Surgery Progress Note: Obj - Vital signs Vital signs: Vital Signs - Most Recent Temp Pulse Resp BP Pulse Ox 98.5 F 111 H 14 114/62 100 06/24/20 11:00 06/24/20 08:55 06/24/20 08:55 06/24/20 07:51 06/24/20 10:53 Surgery Progress Note: Results - Labs Result Diagrams: 06/24/20 06:03 06/24/20 06:03 Lab results: Laboratory Results - last 24 hr 06/22/20 06/24/20 06/24/20 05:58 06:03 06:03 WBC 15.6 H RBC 2.90 L Hgb 9.2 L Hct 27.8 L MCV 95.9 MCH 31.9 H MCHC 33.3 RDW 16.4 H Plt Count 72 L MPV 7.4 Neutrophils % 77.1 H Neutrophils % (Manual) Not Reportable Lymphocytes % 9.1 L Monocytes % 13.3 H Eosinophils % 0.4 Basophils % 0.1 Neutrophils # 12.1 H Lymphocytes # 1.4 Monocytes # 2.1 H Eosinophils # 0.1 Basophils # 0.0 Smear Path Review Sodium 142 Potassium 3.8 Chloride 112 H Carbon Dioxide 24 Anion Gap 10 BUN 32 H Creatinine 0.75 Estimated GFR (MDRD) 82 Glucose 100 Calcium 8.0 Total Bilirubin 4.4 H AST 277 H ALT 136 H Alkaline Phosphatase 70 Serum Total Protein 5.0 L Albumin 2.3 L Globulin 2.7 Albumin/Globulin Ratio 0.9 L
--- NOTE | 2020-06-24 15:05 | PRG ---
DATE OF SERVICE: 06/24/2020 SUBJECTIVE: Patient was seen and examined at bedside and overnight events noted. Patient denies any shortness of breath or chest pain or palpitation. No history of nausea or vomiting or diarrhea or fever or chills or cramps. OBJECTIVE: GENERAL: This is a well-built female in no acute distress. VITAL SIGNS: Temperature 98.5. Pulse 113. Respiratory rate 18. Blood pressure 103/68. HEENT: Atraumatic, normocephalic. Oral mucosa is moist. NECK: Supple. CARDIOVASCULAR: S1, S2 heard. Rate and rhythm regular. RESPIRATORY: Clear to auscultation. GASTROINTESTINAL: Abdomen is soft. MUSCULOSKELETAL: No tenderness. No edema. DERMATOLOGIC: No skin rash. NEUROLOGIC: Alert and awake and oriented x3. No focal neurologic deficits. Moving all the extremities. PSYCHIATRIC: Mood and affect normal. LABORATORY DATA: Potassium 3.8, BUN is 32, and creatinine is 0.7. ASSESSMENT AND PLAN: 1. Acute kidney injury, much improved. 2. History of hypertension. 3. Anemia of chronic disease. 4. Hyponatremia, better. 5. Hyperkalemia. 6. Acidosis. Overall renal function is better with good urine output, almost 1.5 L. Job ID: [id number] [facility]
--- NOTE | 2020-06-24 16:55 | PRG ---
DATE OF SERVICE: SUBJECTIVE: Ms. Riley is confused today. OBJECTIVE: VITAL SIGNS: Her temperature is 98.5, blood pressure 116/63, pulse 80. GENERAL: She is slow, awake, but not verbalizing much. LUNGS: Clear to auscultation bilaterally. HEART: Regular rate and rhythm without murmur. ABDOMEN: Soft, nontender. Bowel sounds are present. Her abdomen is mildly distended. EXTREMITIES: No lower extremity edema. LABORATORY DATA: White blood cell count 15.6, hemoglobin 9.2, platelets 72. INR 1.5 a couple of days ago. Creatinine 0.75. IMPRESSION: 1. Acute variceal hemorrhage, status post banding. 2. End-stage liver disease secondary to alcohol. 3. Acute renal failure, resolved. 4. Anemia of acute blood loss, stable. RECOMMENDATIONS: 1. Continue octreotide until tomorrow afternoon, at which point it can be decreased to 25 mcg/hour for 12 hours and then discontinue. 2. Continue ceftriaxone for SBP prophylaxis. We generally give this around 5 days course. 3. For her hepatic encephalopathy, she is unfortunately not alert enough to take lactulose orally. We will give lactulose enema this evening and when she is awake enough to swallow safely, she can take it by mouth. 4. Dr. Choudhury will cover the GI service tomorrow. Job ID: [id number]
[2020-06-24] MEDS ORDERED: Lactulose 10 GM/15 ML Oral Solution PR SCH (17:00)
[2020-06-24 20:48] LABS: Lactic Acid 1.8 mmol/L (0.5-2.2)
--- NOTE | 2020-06-24 21:44 | RAD ---
Exam: 2 views abdomen and one view chest HISTORY: Pain. COMPARISON: Chest one view 06/22/2020 FINDINGS: Chest 1 view: Interval development of multifocal interstitial and alveolar opacities. Correlate for m ulti lobar pneumonia. No pneumothorax. Interval removal of endotracheal and nasogastric tube 2 views abdomen: Nonspecific bowel gas pattern. No suspicious densities in the abdomen or pelvis. No differential air-fluid levels. Left inguinal vascular catheter is identified. IMPRESSION: 1. Interval development of multifocal opacities in the lung parenchyma. Multi lobar pneumonia is susp ected. 2. Nonspecific bowel gas pattern.
--- NOTE | 2020-06-24 22:59 | PDOC.EVN ---
Event Note - Event Note Event Note: Nursing called, patient anxious, pulling at lines. Hx 1 bottle wine per day. She is inpatient, day #3, ordered ASE protocol, ativan 0.5mg x 1 dose. Check electrolytes and b12/folate levels.
[2020-06-24] MEDS ORDERED: Diazepam 5 MG TAB PO PRN (23:07)
[2020-06-24] MEDS ORDERED: Thiamine HCl 200 MG/2 ML VIAL IM SCH (23:15)
[2020-06-24] MEDS ORDERED: Lorazepam 2 MG/ML VIAL SLOW IVP SCH (23:15)
[2020-06-25] MEDS: Sodium Chloride 0.9% 1,000 ML IV SCH (01:28)
[2020-06-25] MEDS ORDERED: Diazepam 5 MG TAB PO PRN ×2 (04:00→19:41)
[2020-06-25 04:35] LABS: ALT (SGPT) 113 U/L (8-55); AST (SGOT) 166 U/L (5-34); Albumin 2.4 g/dL (3.5-5.0); Alkaline Phosphatase 92 U/L (40-110); Anion Gap 13 mmol/L (10-20); BUN (Urea Nitrogen) 19 mg/dL (7.0-18.7); Bilirubin, Total 5.7 mg/dL (0.2-1.2); Calc. Creatinine Clearance 76 mL/min (70-130); Calcium 8.1 mg/dL (7.8-10.44); Carbon Dioxide 22 mmol/L (22-29); Chloride 117 mmol/L (98-107); Estimated GFR-MDRD Greater than 90; Globulin 2.9 g/dL (2.4-3.5); Glucose 106 mg/dL (70-105); Magnesium 2.1 mg/dL (1.6-2.6); Potassium 3.4 mmol/L (3.5-5.1); Protein, Total 5.3 g/dL (6.0-8.3); Sodium 149 mmol/L (136-145)
[2020-06-25 05:34] LABS: INR-International Normal Ratio 1.4
[2020-06-25 05:53] LABS: Hemoglobin 9.3 g/dL (12.0-16.0); Mean Corpuscular HGB CONC 32.7 g/dL (32.0-36.0); Mean Corpuscular Hemoglobin 32.3 pg (27.0-31.0); Mean Corpuscular Volume 98.5 fL (78.0-98.0); Mean Platelet Volume 7.2 fL (7.4-10.4); Platelet Count 99 thou/uL (130-400); RBC Distribution Width 16.5 % (11.5-14.5); Red Blood Cell (RBC) Count 2.89 mill/uL (4.20-5.40); White Blood Cell (WBC) Count 21.1 thou/uL (4.8-10.8)
[2020-06-25] MEDS: cefTRIAXone\\ROCEPHIN 1 GM in Sodium Chloride 0.9% 100 ML IVPB SCH (06:47)
[2020-06-25] MEDS: Magnesium Oxide 400 MG TAB PO SCH (08:12)
[2020-06-25] MEDS: Folic Acid 1 MG TAB PO SCH (08:12)
[2020-06-25] MEDS: Thiamine 100 MG TAB PO SCH (08:13)
[2020-06-25] MEDS: Multivitamin W/ Minerals 1 TAB PO SCH (08:13)
[2020-06-25] MEDS: Pantoprazole 40 MG VIAL IVP SCH ×2 (08:18→20:00)
[2020-06-25] MEDS ORDERED: Sodium Chloride 0.9% 1,000 ML IV SCH (08:57)
[2020-06-25] MEDS: Cefepime 1 GM in Sodium Chloride 0.9% 100 ML IVPB SCH ×2 (09:09→19:57)
--- NOTE | 2020-06-25 09:20 | PDOC.HOSPP ---
- Subjective Encounter Date: 06/25/20 Encounter Time: 09:18 Subjective: thrashing about, no appropriate verbalization - Objective Vital Signs & Weight: Vital Signs (12 hours) Temp Pulse Ox 06/25/20 07:28 93 L 06/25/20 04:00 98.5 F 06/25/20 00:00 98.4 F Weight Weight 92 lb 9.506 oz Most Recent Monitor Data Heart Rate from ECG 119 NIBP 138/84 NIBP BP-Mean 102 Respiration from ECG 23 SpO2 94 I&O: 06/24/20 06/25/20 06/26/20 06:59 06:59 06:59 Intake Total 3082.9 3183 Output Total 1545 1590 40 Balance 1537.9 1593 -40 Result Diagrams: 06/25/20 03:07 06/25/20 03:07 Hospitalist ROS - Medication Medications: Active Medications Generic Name Dose Route Start Last Admin Trade Name Freq PRN Reason Stop Dose Admin Folic Acid 1 mg 06/25/20 09:00 06/25/20 08:12 Folvite PO Not Given DAILY JOSE Norepinephrine Bitartrate 250 mls @ 0 mls/hr 06/22/20 21:04 06/23/20 16:50 Levophed IVPB 250 mls INF JOSE Administration Protocol Titrate Cefepime HCl 1 gm/ Sodium 100 mls @ 200 mls/hr 06/25/20 09:00 06/25/20 09:09 Chloride IVPB 100 mls Q12HR JOSE Administration Sodium Chloride 1,000 mls @ 50 mls/hr 06/25/20 08:57 06/25/20 09:08 Normal Saline 0.9% IV 1,000 mls .Q20H JOSE Administration Iron/Minerals/Multivitamins 1 tab 06/25/20 09:00 06/25/20 08:13 Theragran M PO Not Given DAILY JOSE Magnesium Oxide 400 mg 06/25/20 09:00 06/25/20 08:12 Magnesium Oxide PO Not Given DAILY JOSE Pantoprazole Sodium 40 mg 06/23/20 21:00 06/25/20 08:18 Protonix IVP 40 mg Q12HR JOSE Administration Sodium Chloride 10 ml 06/22/20 21:00 06/25/20 08:19 Flush - Normal Saline IVF 10 ml Q12HR JOSE Administration Thiamine HCl 100 mg 06/25/20 09:00 06/25/20 08:13 Thiamine PO Not Given DAILY JOSE - Exam Neck: no JVD Heart: RRR, no murmur Respiratory - other findings: onchi/ rales/ coarse BS Gastrointestinal: soft, non-tender, normal bowel sounds Extremities: 1+ LE edema Hosp A/P (1) Sepsis due to Streptococcus species with acute liver failure Code(s): A40.9 - STREPTOCOCCAL SEPSIS, UNSPECIFIED; R65.20 - SEVERE SEPSIS WITHOUT SEPTIC SHOCK; K72.00 - ACUTE AND SUBACUTE HEPATIC FAILURE WITHOUT COMA Status: Acute Qualifiers: Hepatic coma status: unspecified Severe sepsis shock status: with septic shock Qualified Code(s): A40.9 - Streptococcal sepsis, unspecified; R65.21 - Severe sepsis with septic shock; K72.00 - Acute and subacute hepatic failure without coma (2) Hepatic encephalopathy Code(s): K72.90 - HEPATIC FAILURE, UNSPECIFIED WITHOUT COMA Status: Acute (3) Cirrhosis, alcoholic Code(s): K70.30 - ALCOHOLIC CIRRHOSIS OF LIVER WITHOUT ASCITES Status: Chronic Qualifiers: Ascites presence: unspecified Qualified Code(s): K70.30 - Alcoholic cirrhosis of liver without ascites (4) Acute renal failure Status: Acute Qualifiers: Acute renal failure type: unspecified Qualified Code(s): N17.9 - Acute kidney failure, unspecified (5) Acute respiratory failure Code(s): J96.00 - ACUTE RESPIRATORY FAILURE, UNSP W HYPOXIA OR HYPERCAPNIA Status: Resolved Qualifiers: Respiratory failure complication: hypoxia Qualified Code(s): J96.01 - Acute respiratory failure with hypoxia (6) GIB (gastrointestinal bleeding) Code(s): K92.2 - GASTROINTESTINAL HEMORRHAGE, UNSPECIFIED Status: Acute Qualifiers: GI bleed type/associated pathology: unspecified gastrointestinal hemorrhage type Qualified Code(s): K92.2 - Gastrointestinal hemorrhage, unspecified (7) Varices, esophageal Code(s): I85.00 - ESOPHAGEAL VARICES WITHOUT BLEEDING Status: Acute Qualifiers: Esophageal varices type: unspecified type Esophageal varices bleeding: with bleeding Qualified Code(s): I85.01 - Esophageal varices with bleeding - Plan taper octreotide monitor CBC for transfusion rpt lactulose enema, still not alert enough po cont cefepime iv discuss with ammonia nitrate operator discussed with spouse
[2020-06-25] MEDS ORDERED: Octreotide Acetate 1,250 MCG in Sodium Chloride 0.9% 250 ML 250 ML IVPB SCH (09:30)
--- NOTE | 2020-06-25 11:04 | PRG ---
DATE OF SERVICE: 06/25/2020 SUBJECTIVE: 49-year-old female. This morning, is awake, responsive. She is extubated yesterday. No distress, but she is still encephalopathic. OBJECTIVE: VITAL SIGNS: O2 saturation is 94% on room air, respiratory rate 23, blood pressure 130/84, pulse 87\min_. CHEST: Bilateral rhonchi. CARDIAC: Normal S1, S2. No masses. LABORATORY DATA: White count 21,000, H and H 9 and 28, platelet count 99. Lytes are normal. AST 166. ASSESSMENT: Metabolic encephalopathy, sepsis, pneumonia, aspiration, alcoholic liver disease. PLAN: speech consult, is being ordered. She is on antibiotics, neb treatments, lactulose, supportive care. At some stage, she can be transferred out of the ICU to monitored bed. Family members are at the bedside. We will continue to follow. Job ID: [id number] [facility]
[2020-06-25] MEDS: Dextrose 5% in Water 1,000 ML IV SCH ×2 (12:09→22:19)
--- NOTE | 2020-06-25 13:19 | PRG ---
DATE OF SERVICE: 06/25/2020 SUBJECTIVE: The patient was seen and examined in ICU. She remains encephalopathic. OBJECTIVE: GENERAL: This is a well-built female, encephalopathic. VITAL SIGNS: Temperature 97.8, pulse 108, respiratory rate 18, blood pressure 128/71. HEENT: Atraumatic and normocephalic. NECK: Supple. CV: S1 and S2, head. RESPIRATORY: Clear. GI: Abdomen is soft. MUSCULOSKELETAL: No edema. DERMATOLOGIC: No skin rash. NEUROLOGIC: Confused. LABORATORY DATA: Potassium 3.4, sodium 149, BUN 19, creatinine is 0.5. ASSESSMENT AND PLAN: 1. Acute kidney injury, much better. 2. Hypernatremia with hyperchloremia. We will start D5W. 3. Hypokalemia, replace. 4. Elevated liver enzymes. 5. Hypoalbuminemia. Start on D5W. Encourage free water if tolerated and we will monitor. Job ID: [id number]
--- NOTE | 2020-06-25 18:08 | PRG ---
DATE OF SERVICE: 06/25/2020 SUBJECTIVE: The patient continues to moan and trash about in bed. She is arousable to verbal stimuli, but not alert nor lucid. No evidence of GI bleeding. OBJECTIVE: VITAL SIGNS: Temperature 97.7, blood pressure 139/94, pulse of 110. GENERAL: She is trashing around in bed with loud vocalization. She is obviously confused. HEENT: Sclerae anicteric. CV: Shows normal S1, S2. Regular rhythm and tachycardic. CHEST: Shows breath sounds difficult to auscultate. ABDOMEN: Mildly protuberant. No tenderness elicited. She has active bowel sounds. EXTREMITIES: Show no edema. LABORATORY DATA: Blood culture shows Streptococcus x2. Sodium 149, potassium 3.4, chloride 117, CO2 of 22, creatinine 0.59, BUN of 19, ammonia level is 36, bilirubin 5.7, AST 166, ALT 113, alkaline phosphatase 92. Hemoglobin 9.3 and stable, WBCs 21, and platelet count of 99. ASSESSMENT: 1. Status post upper gastrointestinal bleed from variceal, status post banding/ligation 3 days ago. 2. Alcoholic liver disease with cirrhosis. 3. Encephalopathy. Her ammonia level was 212, which has since normalized down to 37 over the last 3 days. However, she is still in not at her baseline mentation, which raises possibility of other toxic-metabolic encephalopathy component, perhaps from her sepsis. 4. Streptococcal sepsis. RECOMMENDATIONS: 1. We scheduled lactulose enema q.8 hours. 2. If the patient cannot retain enema, will likely have to restrain and put an NG tube down for lactulose administration as the patient is not alert enough to swallow safely. 3. Can discontinue octreotide by a.m. 4. Continue cefepime for her bacteremia. 5. We will follow. Job ID: [id number]
--- NOTE | 2020-06-25 18:20 | PDOC.GSPN ---
Surgery Progress Note: Subj - Subjective Narrative: Patient is answering questions unpredictably today. Only some of her answers are comprehensible. She does deny abdominal pain or nausea. She does not exhibit any tenderness to palpation of her abdomen. I am going to sign off. Call me if any concerns. Surgery Progress Note: Obj - Vital signs Vital signs: Vital Signs - Most Recent Temp Pulse Resp BP Pulse Ox 97.7 F 113 H 22 H 114/62 96 06/25/20 16:00 06/25/20 14:11 06/25/20 14:11 06/24/20 07:51 06/25/20 14:11 Surgery Progress Note: Results - Labs Result Diagrams: 06/25/20 03:07 06/25/20 03:07 Lab results: Laboratory Results - last 24 hr 06/25/20 06/25/20 06/25/20 03:07 03:30 09:12 Neutrophils % (Manual) Not Reportable Ammonia 37 Folate 17.20
[2020-06-25] MEDS ORDERED: Lorazepam 2 MG/ML VIAL SLOW IVP SCH ×2 (19:45→20:45)
[2020-06-25] MEDS ORDERED: Thiamine HCl 200 MG/2 ML VIAL IM SCH (19:45)
[2020-06-25] MEDS ORDERED: Ziprasidone 20 MG VIAL IM SCH (22:00)
[2020-06-26] MEDS ORDERED: Diazepam 5 MG TAB PO PRN (04:00)
[2020-06-26] MEDS: Thiamine 100 MG TAB PO SCH (08:24)
[2020-06-26] MEDS: Pantoprazole 40 MG VIAL IVP SCH ×2 (08:24→19:52)
[2020-06-26] MEDS: Multivitamin W/ Minerals 1 TAB PO SCH (08:24)
[2020-06-26] MEDS: Cefepime 1 GM in Sodium Chloride 0.9% 100 ML IVPB SCH ×2 (08:25→19:51)
[2020-06-26] MEDS: Folic Acid 1 MG TAB PO SCH (08:25)
[2020-06-26] MEDS: Magnesium Oxide 400 MG TAB PO SCH (08:25)
[2020-06-26] MEDS ORDERED: Thiamine 100 MG TAB PO SCH (09:00)
[2020-06-26] MEDS ORDERED: Folic Acid 1 MG TAB PO SCH (09:00)
[2020-06-26] MEDS ORDERED: Magnesium Oxide 400 MG TAB PO SCH (09:00)
[2020-06-26] MEDS ORDERED: Multivitamin W/ Minerals 1 TAB PO SCH (09:00)
--- NOTE | 2020-06-26 09:02 | PRG ---
DATE OF SERVICE: 06/26/2020 SUBJECTIVE: Charlotte Riley remains in the ICU, very encephalopathic. OBJECTIVE: VITAL SIGNS: Pulse 106, blood pressure 160/75, sats _96%. CHEST: Decreased breath sounds. Bilateral rhonchi. CARDIAC: Normal S1, S2. No gallops. ABDOMEN: No masses. IMPRESSION: Alcoholic liver disease, gastrointestinal bleed, respiratory failure, encephalopathy, and history of alcohol abuse. PLAN: She remains very encephalopathic in the ICU. I have her on antibiotics for her presumed pneumonia. She is only on octreotide. We will continue supportive care. She received 1 dose of Geodon. Overall, prognosis is guarded. We will follow. [facility] ID: [id number] [facility]
--- NOTE | 2020-06-26 10:02 | PDOC.HOSPP ---
- Subjective Encounter Date: 06/26/20 Encounter Time: 09:58 Subjective: encephalopathy persists - Objective Vital Signs & Weight: Vital Signs (12 hours) Pulse Resp Pulse Ox 06/26/20 07:53 99 06/26/20 07:52 102 H 28 H 99 06/26/20 07:36 96 06/26/20 00:29 110 H 25 H 88 L Weight Weight 92 lb 9.506 oz Most Recent Monitor Data Heart Rate from ECG 110 NIBP 161/80 NIBP BP-Mean 107 Respiration from ECG 33 SpO2 96 I&O: 06/25/20 06/26/20 06/27/20 06:59 06:59 06:59 Intake Total 3183 2559 Output Total 1590 1065 30 Balance 1593 1494 -30 Result Diagrams: 06/25/20 03:07 06/25/20 03:07 Hospitalist ROS - Medication Medications: Active Medications Generic Name Dose Route Start Last Admin Trade Name Freq PRN Reason Stop Dose Admin Albuterol/Ipratropium 3 ml 06/25/20 13:00 06/26/20 07:52 Duoneb NEB 3 ml [id number] OJSE Administration Folic Acid 1 mg 06/25/20 09:00 06/26/20 08:25 Folvite PO 1 mg DAILY JOSE Administration Norepinephrine Bitartrate 250 mls @ 0 mls/hr 06/22/20 21:04 06/23/20 16:50 Levophed IVPB 250 mls INF JOSE Administration Protocol Titrate Cefepime HCl 1 gm/ Sodium 100 mls @ 200 mls/hr 06/25/20 09:00 06/26/20 08:25 Chloride IVPB 100 mls Q12HR JOSE Administration Dextrose/Water 1,000 mls @ 100 mls/hr 06/25/20 11:45 06/25/20 22:19 D5w IV Not Given .Q10H JOSE Iron/Minerals/Multivitamins 1 tab 06/25/20 09:00 06/26/20 08:24 Theragran M PO 1 tab DAILY JOSE Administration Magnesium Oxide 400 mg 06/25/20 09:00 06/26/20 08:25 Magnesium Oxide PO 400 mg DAILY JOSE Administration Pantoprazole Sodium 40 mg 06/23/20 21:00 06/26/20 08:24 Protonix IVP 40 mg Q12HR JOSE Administration Sodium Chloride 10 ml 06/22/20 21:00 06/26/20 08:24 Flush - Normal Saline IVF 10 ml Q12HR JOSE Administration Thiamine HCl 100 mg 06/25/20 09:00 06/26/20 08:24 Thiamine PO 100 mg DAILY JOSE Administration - Exam Neck: no JVD Heart: RRR Respiratory - other findings: coarse BS Gastrointestinal: soft, non-tender, normal bowel sounds Extremities: 1+ LE edema Hosp A/P (1) Sepsis due to Streptococcus species with acute liver failure Code(s): A40.9 - STREPTOCOCCAL SEPSIS, UNSPECIFIED; R65.20 - SEVERE SEPSIS WITHOUT SEPTIC SHOCK; K72.00 - ACUTE AND SUBACUTE HEPATIC FAILURE WITHOUT COMA Status: Acute Qualifiers: Hepatic coma status: unspecified Severe sepsis shock status: with septic shock Qualified Code(s): A40.9 - Streptococcal sepsis, unspecified; R65.21 - Severe sepsis with septic shock; K72.00 - Acute and subacute hepatic failure without coma (2) Hepatic encephalopathy Code(s): K72.90 - HEPATIC FAILURE, UNSPECIFIED WITHOUT COMA Status: Acute (3) Cirrhosis, alcoholic Code(s): K70.30 - ALCOHOLIC CIRRHOSIS OF LIVER WITHOUT ASCITES Status: Chronic Qualifiers: Ascites presence: unspecified Qualified Code(s): K70.30 - Alcoholic cirrhosis of liver without ascites (4) Acute renal failure Status: Resolved Qualifiers: Acute renal failure type: unspecified Qualified Code(s): N17.9 - Acute kidney failure, unspecified (5) Acute respiratory failure Code(s): J96.00 - ACUTE RESPIRATORY FAILURE, UNSP W HYPOXIA OR HYPERCAPNIA Status: Resolved Qualifiers: Respiratory failure complication: hypoxia Qualified Code(s): J96.01 - Acute respiratory failure with hypoxia (6) GIB (gastrointestinal bleeding) Code(s): K92.2 - GASTROINTESTINAL HEMORRHAGE, UNSPECIFIED Status: Acute Qualifiers: GI bleed type/associated pathology: unspecified gastrointestinal hemorrhage type Qualified Code(s): K92.2 - Gastrointestinal hemorrhage, unspecified (7) Varices, esophageal Code(s): I85.00 - ESOPHAGEAL VARICES WITHOUT BLEEDING Status: Acute Qualifiers: Esophageal varices type: unspecified type Esophageal varices bleeding: with bleeding Qualified Code(s): I85.01 - Esophageal varices with bleeding - Plan taper octreotide monitor CBC for transfusion renal failure resolved NGT placed for nutrition, meds cont lactulose bacteremia sens to ceftriaxone, cont, SBP? etiology of encephalopathy not clear, ammonia level normalized poss wernickes, cont vitamins, etc
[2020-06-26] MEDS: Multivitamins, Adult 10 ML, Folic Acid 1 MG, Thiamine HCl 100 MG in Dextrose 5 %-0.45 %... IV SCH (10:50)
[2020-06-26] MEDS: Dextrose 5% in Water 1,000 ML IV SCH ×2 (10:51→19:06)
[2020-06-26 12:13] LABS: Mean Corpuscular HGB CONC 33.6 g/dL (32.0-36.0); Mean Corpuscular Hemoglobin 33.3 pg (27.0-31.0); Mean Corpuscular Volume 99.3 fL (78.0-98.0); Mean Platelet Volume 7.7 fL (7.4-10.4); Platelet Count 83 thou/uL (130-400); RBC Distribution Width 16.6 % (11.5-14.5); White Blood Cell (WBC) Count 13.1 thou/uL (4.8-10.8)
--- NOTE | 2020-06-26 12:25 | PRG ---
DATE OF SERVICE: 06/26/2020 SUBJECTIVE: The patient is seen and examined at the bedside. She is somnolent today. OBJECTIVE: GENERAL: This is an elderly female, in no apparent distress. VITAL SIGNS: Temperature 98.7, pulse 106, respiratory rate 28, blood pressure 120/80. HEENT: Atraumatic, normocephalic. NECK: Supple. CVS: S1 and S2 heard. RESPIRATORY: Clear. MUSCULOSKELETAL: No edema. NEUROLOGIC: Somnolent. LABORATORY DATA: Pending. ASSESSMENT AND PLAN: 1. Acute kidney injury. Recheck labs. 2. Hypernatremia with hyperchloremia. 3. Hypokalemia, replace. 4. Hypoalbuminemia. 5. History of hypertension, stable. 6. Altered mentation. 7. Recheck labs and we will adjust fluid. We will continue fluid for now. Job ID: [id number]
[2020-06-26 12:28] LABS: #Eosinphils 0.1 thou/uL (0.0-0.7); #Lymphocytes 1.6 thou/uL (1.20-3.40); #Monocytes 1.5 thou/uL (0.11-0.59); #Neutrophils 9.9 thou/uL (1.40-6.50); %Basophils 0.1 % (0.0-1.0); %Eosinophils 0.5 % (0.0-10.0); %Lymphocytes 12.4 % (21.0-51.0); %Monocytes 11.3 % (0.0-10.0); %Neutrophils 75.8 % (42.0-75.0)
[2020-06-26 12:29] LABS: ALT (SGPT) 92 U/L (8-55); AST (SGOT) 96 U/L (5-34); Albumin 2.5 g/dL (3.5-5.0); Alkaline Phosphatase 84 U/L (40-110); Anion Gap 14 mmol/L (10-20); BUN (Urea Nitrogen) 13 mg/dL (7.0-18.7); Band 5 % (5-11); Bilirubin, Total 5.5 mg/dL (0.2-1.2); Calc. Creatinine Clearance 80 mL/min (70-130); Calcium 8.1 mg/dL (7.8-10.44); Carbon Dioxide 21 mmol/L (22-29); Chloride 116 mmol/L (98-107); Estimated GFR-MDRD Greater than 90; Globulin 2.8 g/dL (2.4-3.5); Glucose 133 mg/dL (70-105); Hypochromia SLIGHT = 6-15 cells (100X) (0-5/hpf); Lymphocytes 15 % (21-51); MDiff Complete? YES; Magnesium 1.7 mg/dL (1.6-2.6); Monocytes 8 % (0-10); Neutrophil 72 % (42-75); Platelet Morphology Comment Appears Decreased; Potassium 3.3 mmol/L (3.5-5.1); Protein, Total 5.3 g/dL (6.0-8.3); Sodium 148 mmol/L (136-145)
[2020-06-26 12:35] LABS: Phosphorus 1.9 mg/dL (2.3-4.7)
--- NOTE | 2020-06-26 12:37 | PRG ---
DATE OF SERVICE: 06/26/2020 SUBJECTIVE: Ms. Riley had an NG tube placed overnight. She received Geodon overnight as well. She is unresponsive with NG tube in place. The nurses note she was very combative and delirious last night. MEDICATIONS: 1. PRN Tylenol. 2. DuoNeb. 3. Cefepime. 4. Valium for agitation. 5. Zofran p.r.n. 6. Protonix 40 q.12 IV. 7. Folic acid, which has not been given. 8. Mag ox, which has not been given. 9. Multivitamin, which has not been given. 10. Thiamine, which has not been given. 11. Octreotide drip. 12. Lactulose per rectum ordered, not given. OBJECTIVE: VITAL SIGNS: Pulse 102, respirations 28, blood pressure is 161/80, temperature max 97.7. Urine total output 1065, total in 2559, total balance 1494. GENERAL: She is icteric. She is nonresponsive. She has an NG tube in place. She has muscle wasting. LUNGS: Notable for rhonchi, coarse bilaterally. Some wheezing in the bases. ABDOMEN: Protuberant, nontender. Bowel sounds are quiescent. EXTREMITIES: Reveal no clubbing, cyanosis, or edema. LABORATORY STUDIES: White count 21,000 yesterday, not done today; hemoglobin 9.3; platelet count 99,000. INR was 1.4 yesterday. Electrolytes yesterday, sodium is 141, potassium 3.4, BUN and creatinine are 19 and 0.5, bilirubin is 5.7. AST and ALT are 166 and 113. Folate was 17. B12 greater than 2000. Hep B was nonreactive. COVID was not detected. Microbiology; Streptococcus salivarius about 2 bottles. ASSESSMENT: 1. Strep sepsis, on cefepime. 2. Encephalopathy. Last ammonia yesterday was 37. It is likely related to Geodon and other sedatives she has received, she has been here since the . 3. Cirrhosis from alcohol abuse with thrombocytopenia, elevated liver enzymes consistent with alcoholic liver disease, ascites. She needs hepatitis A, B, and C serology if these have not been done. She needs hepatoma screening with AFP. At a later date, MRI of the liver. She has had an ultrasound showing fatty liver nodularity. 4. Ascites, tapped on 05/16 with a serum ascitic albumin gradient of 2, consistent with portal hypertensive ascites. 5. Gastrointestinal hemorrhage from varices, banded on 06/22/2020 and previously on 09/07/2018. RECOMMENDATIONS: 1. Hold sedatives. This is hospital day #4. She came in with a negative alcohol level. She should be having DTs. 2. She needs a banana bag daily. She is not taking orally regularly. 3. Can start tube feeds slowly. 4. Wean octreotide. 5. She needs labs checked. Job ID: [id number]
[2020-06-26] MEDS ORDERED: Electrolyte Replacement Protocol FS PRN (14:30)
[2020-06-26] MEDS ORDERED: Magnesium 2 GM/50 ML 2 GM in Premix Bag 1 BAG IVPB SCH (15:30)
[2020-06-26] MEDS ORDERED: Potassium Chloride 20 MEQ TAB PO SCH (15:30)
[2020-06-26] MEDS: PHOS-NAK 1 PKT PACK PO SCH ×2 (15:32→19:50)
[2020-06-26 22:07] LABS: Actual Bicarbonate (HCO3a) 21.5 mEq/L (22-28); Base Excess (BEa) -0.9 mEq/L (-2.0 to +3.0); Calcium, Ionized (arterial) 1.19 mmol/L (1.12-1.30); Carboxyhemoglobin (COHb) 0.5 gm% (0.0-3.0); Hemoglobin (Hb) 9.4 g/dL (12.0-16.0); Potassium - ABG Lab 3.14 mmol/L (3.70-5.30)
--- NOTE | 2020-06-26 22:17 | RAD ---
Exam: Chest one view HISTORY:Respiratory distress. Wheezing. Worsening shortness of breath. Comparison: 06/22/2020, 06/24/2020 FINDINGS: Lines and tubes: Placement of nasogastric tube since the most recent prior exam. Cardiac silhouette:Stable cardiac Aorta: Unremarkable Pulmonary vessels: Normal Costophrenic angles: Clear LUNGS: Interstitial and alveolar opacities. The overall degree of opacification has not significant c hanged. Pneumothorax: None Osseous abnormalities: None IMPRESSION: Persistent multi focal interstitial and alveolar opacities. Multi lobar pneumonia is susp ected.
[2020-06-26] MEDS ORDERED: methylPREDNISolone Sod Succ/PF 125 MG/2 ML VIAL IVP SCH (22:30)
[2020-06-26 22:32] LABS: Puncture Site RRA
[2020-06-27] MEDS: Dextrose 5% in Water 1,000 ML IV SCH ×2 (03:42→13:25)
[2020-06-27 04:25] LABS: ALT (SGPT) 85 U/L (8-55); AST (SGOT) 86 U/L (5-34); Albumin 2.3 g/dL (3.5-5.0); Alkaline Phosphatase 85 U/L (40-110); Anion Gap 13 mmol/L (10-20); BUN (Urea Nitrogen) 9 mg/dL (7.0-18.7); Calc. Creatinine Clearance 83 mL/min (70-130); Carbon Dioxide 20 mmol/L (22-29); Chloride 121 mmol/L (98-107); Estimated GFR-MDRD Greater than 90; Globulin 3.1 g/dL (2.4-3.5); Glucose 155 mg/dL (70-105); Magnesium 1.9 mg/dL (1.6-2.6); Phosphorus 2.6 mg/dL (2.3-4.7); Potassium 3.6 mmol/L (3.5-5.1); Protein, Total 5.4 g/dL (6.0-8.3); Sodium 150 mmol/L (136-145)
[2020-06-27 07:09] LABS: #Lymphocytes 0.7 thou/uL (1.20-3.40); #Monocytes 0.4 thou/uL (0.11-0.59); #Neutrophils 10.3 thou/uL (1.40-6.50); %Basophils 0.1 % (0.0-1.0); %Eosinophils 0.2 % (0.0-10.0); %Lymphocytes 5.9 % (21.0-51.0); %Monocytes 3.1 % (0.0-10.0); %Neutrophils 90.8 % (42.0-75.0); Hemoglobin 9.8 g/dL (12.0-16.0); Mean Corpuscular HGB CONC 32.8 g/dL (32.0-36.0); Mean Corpuscular Hemoglobin 33.2 pg (27.0-31.0); Mean Platelet Volume 7.4 fL (7.4-10.4); Platelet Count 71 thou/uL (130-400); RBC Distribution Width 16.5 % (11.5-14.5); Red Blood Cell (RBC) Count 2.94 mill/uL (4.20-5.40); White Blood Cell (WBC) Count 11.3 thou/uL (4.8-10.8)
[2020-06-27] MEDS ORDERED: Magnesium 2 GM/50 ML 2 GM in Premix Bag 1 BAG IVPB SCH (07:45)
[2020-06-27] MEDS: Thiamine 100 MG TAB PO SCH (09:15)
[2020-06-27] MEDS: Folic Acid 1 MG TAB PO SCH (09:15)
[2020-06-27] MEDS: Multivitamin W/ Minerals 1 TAB PO SCH (09:15)
--- NOTE | 2020-06-27 09:29 | PRG ---
DATE OF SERVICE: 06/27/2020 SUBJECTIVE: This morning, she is better. She is encephalopathic, but very appropriate. Her at the bedside. She answers questions appropriately. OBJECTIVE: VITAL SIGNS: Temperature 98, o2 sat 94% blood pressure 126/67 . CHEST: Decreased breath sounds. No wheezing. CARDIAC: Normal S1 and S2. No gallops. ABDOMEN: Soft. LABORATORY DATA: White count 11,000, Hemoglobin and hematocrit 9 and 28, and platelet count is 71. Blood gas obtained last night shows a pO2 of 66, pCO2 of 28, and pH 7.50, those on room air. Sodium is 150. Lytes are normal. Potassium is normal. ASSESSMENT: 1. Respiratory failure. 2. Electrolyte imbalance secondary to diarrhea from the lactulose. 3. Alcoholic liver disease. 4. Aspiration pneumonia. 5. Thrombocytopenia. PLAN: She can probably be transferred to the MICU. Close monitoring and supportive care. We will follow. Baseline chest x-ray being ordered. Job ID: [id number] [facility]
--- NOTE | 2020-06-27 09:35 | PDOC.HOSPP ---
- Subjective Encounter Date: 06/27/20 Encounter Time: 09:33 Subjective: less combative, more alert - Objective Vital Signs & Weight: Vital Signs (12 hours) Temp Pulse Resp Pulse Ox 06/27/20 08:00 98.4 F 06/27/20 07:27 100 06/27/20 07:07 103 H 06/27/20 04:00 98.5 F 06/27/20 03:32 109 H 24 H 100 06/27/20 02:08 100 06/27/20 00:00 98.5 F 100 06/26/20 23:43 103 H 24 H 100 06/26/20 22:40 105 H Weight Admit Weight 92 lb Weight 92 lb 9.506 oz Most Recent Monitor Data Heart Rate from ECG 106 NIBP 129/67 NIBP BP-Mean 87 Respiration from ECG 20 SpO2 98 I&O: 06/26/20 06/27/20 06/28/20 06:59 06:59 06:59 Intake Total 2559 2984 Output Total 1065 1670 90 Balance 1494 1314 -90 Result Diagrams: 06/27/20 06:47 06/27/20 03:29 Hospitalist ROS - Medication Medications: Active Medications Generic Name Dose Route Start Last Admin Trade Name Freq PRN Reason Stop Dose Admin Albuterol/Ipratropium 3 ml 06/27/20 01:00 06/27/20 07:07 Duoneb NEB 3 ml [id number] JOSE Administration Folic Acid 1 mg 06/25/20 09:00 06/26/20 08:25 Folvite PO 1 mg DAILY JOSE Administration Norepinephrine Bitartrate 250 mls @ 0 mls/hr 06/22/20 21:04 06/23/20 16:50 Levophed IVPB 250 mls INF JOSE Administration Protocol Titrate Cefepime HCl 1 gm/ Sodium 100 mls @ 200 mls/hr 06/25/20 09:00 06/26/20 19:51 Chloride IVPB 100 mls Q12HR JOSE Administration Dextrose/Water 1,000 mls @ 100 mls/hr 06/25/20 11:45 06/27/20 03:42 D5w IV Not Given .Q10H JOSE Multivitamins 10 ml/ Folic 1,011.2 mls @ 100 mls/hr 06/26/20 10:00 06/26/20 10:50 Acid 1 mg/ Thiamine HCl 100 mg IV 1,011.2 mls / Dextrose/Sodium Chloride 1000 JOSE Administration Iron/Minerals/Multivitamins 1 tab 06/25/20 09:00 06/26/20 08:24 Theragran M PO 1 tab DAILY JOSE Administration Lactulose 30 gm 06/26/20 09:00 06/26/20 19:50 Lactulose PER TUBE 30 gm QID JOSE Administration Magnesium Oxide 400 mg 06/25/20 09:00 06/26/20 08:25 Magnesium Oxide PO 400 mg DAILY JOSE Administration Pantoprazole Sodium 40 mg 06/23/20 21:00 06/26/20 19:52 Protonix IVP 40 mg Q12HR JOSE Administration Sodium Chloride 10 ml 06/22/20 21:00 06/26/20 19:52 Flush - Normal Saline IVF 10 ml Q12HR JOSE Administration Thiamine HCl 100 mg 06/25/20 09:00 06/26/20 08:24 Thiamine PO 100 mg DAILY JOSE Administration - Exam Neck: no JVD Heart: RRR, no murmur Respiratory - other findings: coarse BS, rhonchi, diffuse Gastrointestinal: soft Extremities: no edema Hosp A/P (1) Sepsis due to Streptococcus species with acute liver failure Code(s): A40.9 - STREPTOCOCCAL SEPSIS, UNSPECIFIED; R65.20 - SEVERE SEPSIS WITHOUT SEPTIC SHOCK; K72.00 - ACUTE AND SUBACUTE HEPATIC FAILURE WITHOUT COMA Status: Acute Qualifiers: Hepatic coma status: unspecified Severe sepsis shock status: with septic shock Qualified Code(s): A40.9 - Streptococcal sepsis, unspecified; R65.21 - Severe sepsis with septic shock; K72.00 - Acute and subacute hepatic failure without coma (2) Hepatic encephalopathy Code(s): K72.90 - HEPATIC FAILURE, UNSPECIFIED WITHOUT COMA Status: Acute (3) Cirrhosis, alcoholic Code(s): K70.30 - ALCOHOLIC CIRRHOSIS OF LIVER WITHOUT ASCITES Status: Chronic Qualifiers: Ascites presence: unspecified Qualified Code(s): K70.30 - Alcoholic cirrhosis of liver without ascites (4) Acute renal failure Status: Resolved Qualifiers: Acute renal failure type: unspecified Qualified Code(s): N17.9 - Acute kidney failure, unspecified (5) Acute respiratory failure Code(s): J96.00 - ACUTE RESPIRATORY FAILURE, UNSP W HYPOXIA OR HYPERCAPNIA Status: Resolved Qualifiers: Respiratory failure complication: hypoxia Qualified Code(s): J96.01 - Acute respiratory failure with hypoxia (6) GIB (gastrointestinal bleeding) Code(s): K92.2 - GASTROINTESTINAL HEMORRHAGE, UNSPECIFIED Status: Acute Qualifiers: GI bleed type/associated pathology: unspecified gastrointestinal hemorrhage type Qualified Code(s): K92.2 - Gastrointestinal hemorrhage, unspecified (7) Varices, esophageal Code(s): I85.00 - ESOPHAGEAL VARICES WITHOUT BLEEDING Status: Acute Qualifiers: Esophageal varices type: unspecified type Esophageal varices bleeding: with bleeding Qualified Code(s): I85.01 - Esophageal varices with bleeding - Plan DC octreotide monitor CBC for transfusion NGT placed for nutrition, meds cont lactulose, decrease to 20 gms tid( 10 episodes diarrhea in 24 hrs bacteremia sens to ceftriaxone, cont, SBP? poss wernickes, ETOH withdrawal, cont vitamins, etc
[2020-06-27] MEDS: Pantoprazole 40 MG VIAL IVP SCH ×2 (10:15→21:13)
[2020-06-27] MEDS: cefTRIAXone\\ROCEPHIN 2 GM in Sodium Chloride 0.9% 100 ML IVPB SCH (10:20)
[2020-06-27] MEDS: Magnesium Oxide 400 MG TAB PO SCH (10:21)
--- NOTE | 2020-06-27 13:05 | RAD ---
EXAM: Single view of the chest HISTORY: Pneumonia COMPARISON: 06/26/2020 FINDINGS: Single view of the chest shows a mildly enlarged cardiomediastinal silhouette. The NG tube is unchanged in position. Stable multifocal mixed infiltrates are seen in the lungs. No acute osseous abnormality. IMPRESSION: Stable multifocal pneumonia
--- NOTE | 2020-06-27 15:11 | PRG ---
DATE OF SERVICE: 06/27/2020 SUBJECTIVE: Patient was seen and examined at bedside and overnight events noted. Patient denies any shortness of breath or chest pain or palpitation. No history of nausea or vomiting or diarrhea or fever or chills or cramps. OBJECTIVE: GENERAL: This is a well-built female, in no apparent distress. VITAL SIGNS: Temperature 98.4. Heart rate 104. Respiratory rate 20. Blood pressure 129/68. HEENT: Atraumatic, normocephalic. Oral mucosa is moist. NECK: Supple. CARDIOVASCULAR: S1, S2 heard. Rate and rhythm regular. RESPIRATORY: Clear to auscultation. GASTROINTESTINAL: Abdomen is soft. MUSCULOSKELETAL: No tenderness. No edema. DERMATOLOGIC: No skin rash. NEUROLOGIC: Alert and awake and oriented x3. No focal neurologic deficits. Moving all the extremities. PSYCHIATRIC: Mood and affect normal. LABORATORY DATA: Sodium 150, potassium 3.6, BUN is 9, and creatinine is 0.5. ASSESSMENT AND PLAN: 1. Acute kidney injury, much better. 2. Hypernatremia. Continue free water. Recommend free water supplementation. 3. Hypokalemia, replace. 4. History of hypertension. 5. Altered mentation, getting better. Continue free water supplementation as tolerated. We will follow. Job ID: [id number]
[2020-06-27] MEDS: Multivitamins, Adult 10 ML, Folic Acid 1 MG, Thiamine HCl 100 MG in Dextrose 5 %-0.45 %... IV SCH (18:05)
--- NOTE | 2020-06-27 20:58 | PRG ---
DATE OF SERVICE: 06/27/2020 REASON FOR CONSULTATION: Cirrhosis, altered mental status/hepatic encephalopathy, bleeding esophageal varices. SUBJECTIVE: Today, the patient seems more alert when compared to previous and was able to answer questions appropriately during the course of the interview. However, the patient was not completely oriented and was initially thinking that she was in a different institution and kept asking questions about wanting to stop the IV drips at bedside with unknown reasons why. Otherwise, she states that she is doing well with no complaints of nausea, vomiting, fevers, chills, hematemesis, melena, hematochezia, abdominal pain, dysphagia, or odynophagia. OBJECTIVE: VITAL SIGNS: Temperature 98.3 pulse 111, blood pressure 124/66, respiratory rate 24, saturating 99% on room air. GENERAL: The patient was lying in bed, in no acute distress. Alert and oriented x2. CARDIOVASCULAR: Regular rate and rhythm. RESPIRATORY: Clear to auscultation bilaterally. ABDOMEN: Normoactive bowel sounds, soft, mild abdominal distention with no tenderness to palpation. EXTREMITIES: No cyanosis, clubbing, or edema. LABORATORY DATA: CBC with a white blood cell count of 11.3, hemoglobin 9.8, hematocrit 29.7, platelets 71. Chemistry with a sodium of 150, potassium 3.6, chloride 121, CO2 20, BUN 9, creatinine 0.54, glucose 155. AST 86, ALT 85, alkaline phosphatase 85, total bilirubin 6.0, albumin 2.3. IMAGING DATA: No current GI imaging is available for review. ASSESSMENT AND PLAN: The patient is a 49-year-old female with past medical history of hyperlipidemia, asthma, and alcoholic cirrhosis complicated by hepatic encephalopathy, now presenting with bleeding esophageal varices status post band ligation x2. GI bleeding/esophageal variceal bleeding: The patient initially presented with severe confusion and nausea vomiting prior to admission. Upon initial evaluation in the [facility] Emergency Room , she was noted to have a severe anemia with a hemoglobin of 3.7. She subsequently underwent upper endoscopy on July 23, 2020, with the presence of grade 3 (large) esophageal varices with high-risk stigmata of bleeding, which prompted band ligation x2. During that same evaluation, there was a large amount of retained blood within the stomach again, indicative of recent bleeding from these esophageal varices. Since that time, the patient has had a relatively stable H and H with no episodes or clinical evidence of recurrent gastrointestinal bleeding. She completed approximately 72 hours of octreotide therapy and is currently on proton pump inhibitor daily as part of treatment for these bleeding esophageal varices. Ultimately, the patient will probably need to be placed on nonselective beta blockade, but would only consider this prior to discharge. Recommendations: 1. Will continue to trend her hemoglobin and hematocrit and transfuse as necessary to maintain an hemoglobin and hematocrit of 7/21. 2. Continue to monitor clinically for signs of active gastrointestinal bleeding. 3. Continue PPI 40 mg intravenous b.i.d. 4. We would continue to avoid any anticoagulation in this patient given recent massive gastrointestinal bleed. 5. The patient will ultimately need to be placed on nonselective beta blockade (with either propranolol or nadolol) prior to discharge but would hold at the current time. 6. Would complete a 5-day course of antibiotics for prophylaxis against the infection with bleeding in a cirrhotic patient. Altered mental status: The patient initially presented with altered mental status as well as her significantly low hemoglobin consistent with hepatic encephalopathy. She was also noted to have an elevated ammonia on admission, which was probably due to the acute GI bleed contributing to absorption of ammonia within into the intravascular space. However, with lactulose administration and correction of her ammonia, she continues to have altered mental status consistent with hepatic encephalopathy. However, over the last 24 hours, the patient has become more alert and aware of her surroundings around her indicative of response to treatment. At this point, the altered mental status could be multifactorial including her recent gastrointestinal bleed contributing to elevated serum ammonia, concurrent diagnosis of streptococcal bacteremia in addition to conscious altering medications administered during this hospitalization. Recommendations: 1. Would refrain from placing the patient on any benzodiazepines or consciousness altering medications during this admission for the time being. 2. Continue lactulose 20 g t.i.d. with a goal of having 3 to 4 bowel movements daily. 3. Antibiotics per primary team as part of treatment for streptococcal bacteremia. We will continue to monitor. Please call with any questions. Job ID: [id number]
[2020-06-27] MEDS: methylPREDNISolone Sod Succ 40 MG VIAL IVP SCH (21:13)
[2020-06-28] MEDS: Dextrose 5% in Water 1,000 ML IV SCH (00:39)
[2020-06-28 05:11] LABS: Phosphorus 2.4 mg/dL (2.3-4.7)
[2020-06-28 05:14] LABS: ALT (SGPT) 86 U/L (8-55); AST (SGOT) 106 U/L (5-34); Albumin 2.4 g/dL (3.5-5.0); Alkaline Phosphatase 97 U/L (40-110); Anion Gap 11 mmol/L (10-20); BUN (Urea Nitrogen) 9 mg/dL (7.0-18.7); Bilirubin, Total 5.8 mg/dL (0.2-1.2); Calc. Creatinine Clearance 87 mL/min (70-130); Calcium 7.6 mg/dL (7.8-10.44); Carbon Dioxide 24 mmol/L (22-29); Chloride 116 mmol/L (98-107); Estimated GFR-MDRD Greater than 90; Globulin 2.8 g/dL (2.4-3.5); Glucose 155 mg/dL (70-105); Potassium 3.2 mmol/L (3.5-5.1); Protein, Total 5.2 g/dL (6.0-8.3); Sodium 148 mmol/L (136-145)
[2020-06-28 05:22] LABS: Band 19 % (5-11); Hemoglobin 8.9 g/dL (12.0-16.0); Hypochromia SLIGHT = 6-15 cells (100X) (0-5/hpf); Lymphocytes 6 % (21-51); MDiff Complete? YES; Mean Corpuscular HGB CONC 32.4 g/dL (32.0-36.0); Mean Corpuscular Hemoglobin 32.7 pg (27.0-31.0); Monocytes 2 % (0-10); Neutrophil 73 % (42-75); Platelet Count 87 thou/uL (130-400); Platelet Morphology Comment Appears Decreased; RBC Distribution Width 16.6 % (11.5-14.5); Red Blood Cell (RBC) Count 2.73 mill/uL (4.20-5.40); White Blood Cell (WBC) Count 15.8 thou/uL (4.8-10.8)
[2020-06-28] MEDS ORDERED: Magnesium 2 GM/50 ML 2 GM in Premix Bag 1 BAG IVPB SCH (06:30)
[2020-06-28] MEDS ORDERED: Furosemide 20 MG/2 ML VIAL SLOW IVP SCH (08:45)
--- NOTE | 2020-06-28 09:36 | PRG ---
DATE OF SERVICE: 06/28/2020 SUBJECTIVE: A 49-year-old female appears to be less encephalopathic. OBJECTIVE: VITAL SIGNS: Maximum temperature is 98, pulse 95, respirations 20, saturations 100%, and blood pressure 105/64. CHEST: Rhonchi and crackles. CARDIAC: Normal S1 and S2. No gallops. ABDOMEN: No masses. LABORATORY DATA: White count 15,000. Lytes are normal. Bilirubin is 5.8. Ammonia level is normal. BNP is 1028, elevated. IMPRESSION: 1. Respiratory failure. 2. Possibly fluid overload. 3. Congestive heart failure. 4. Aspiration pneumonia. 5. Alcoholic liver disease. 6. Cirrhosis. 7. Massive gastrointestinal bleed. PLAN: An echo is being ordered. Trial of Lasix has been given. BNP is markedly elevated. Continue antibiotics and supportive care. Continue low-dose steroids. She can probably be transferred to the MICU later on today. Job ID: [id number]
--- NOTE | 2020-06-28 09:45 | PDOC.HOSPP ---
- Subjective Encounter Date: 06/28/20 Encounter Time: 09:42 Subjective: alert, oriented - Objective Vital Signs & Weight: Vital Signs (12 hours) Temp Pulse Resp Pulse Ox 06/28/20 07:59 95 20 100 06/28/20 04:00 98.8 F 06/28/20 02:43 100 22 H 99 06/28/20 00:41 100 06/28/20 00:00 98.8 F Weight Admit Weight 92 lb Weight 92 lb 9.506 oz Most Recent Monitor Data Heart Rate from ECG 96 NIBP 105/64 NIBP BP-Mean 77 Respiration from ECG 17 SpO2 100 I&O: 06/27/20 06/28/20 06/29/20 06:59 06:59 06:59 Intake Total 2984 0126 Output Total 9070 1327 Balance 1314 3409 Result Diagrams: 06/28/20 04:05 06/28/20 04:05 Radiology Reviewed by me: Yes ([id number], multi-focal infiltrates) Hospitalist ROS - Medication Medications: Active Medications Generic Name Dose Route Start Last Admin Trade Name Terryq PRN Reason Stop Dose Admin Albuterol/Ipratropium 3 ml 06/27/20 14:30 06/28/20 07:59 Duoneb NEB 3 ml [id number] JOSE Administration Folic Acid 1 mg 06/25/20 09:00 06/27/20 09:15 Folvite PO 1 mg DAILY JOSE Administration Norepinephrine Bitartrate 250 mls @ 0 mls/hr 06/22/20 21:04 06/23/20 16:50 Levophed IVPB 250 mls INF JOSE Administration Protocol Titrate Multivitamins 10 ml/ Folic 1,011.2 mls @ 100 mls/hr 06/26/20 10:00 06/27/20 18:05 Acid 1 mg/ Thiamine HCl 100 mg IV 1,011.2 mls / Dextrose/Sodium Chloride 1000 JOSE Administration Ceftriaxone Sodium 2 gm/ 100 mls @ 200 mls/hr 06/27/20 09:45 06/27/20 10:20 Sodium Chloride IVPB 100 mls Q24HR JOSE Administration Magnesium Sulfate 2 gm/ Device 50 mls @ 100 mls/hr 06/28/20 06:30 06/28/20 06 :45 IVPB 06/28/20 10:00 50 mls NOW JOSE Administration Iron/Minerals/Multivitamins 1 tab 06/25/20 09:00 06/27/20 09:15 Theragran M PO 1 tab DAILY JOSE Administration Lactulose 20 gm 06/27/20 09:00 06/27/20 21:13 Lactulose PO Not Given TID JOSE Magnesium Oxide 400 mg 06/25/20 09:00 06/27/20 10:21 Magnesium Oxide PO 400 mg DAILY JOSE Administration Methylprednisolone Sodium Succinate 40 mg 06/27/20 21:00 06/27/20 21:13 Solu-Medrol IVP 06/30/20 21:01 40 mg BID JOSE Administration Pantoprazole Sodium 40 mg 06/23/20 21:00 06/27/20 21:13 Protonix IVP 40 mg Q12HR JOSE Administration Sodium Chloride 10 ml 06/22/20 21:00 06/27/20 21:13 Flush - Normal Saline IVF 10 ml Q12HR JOSE Administration Thiamine HCl 100 mg 06/25/20 09:00 06/27/20 09:15 Thiamine PO 100 mg DAILY JOSE Administration - Exam General Appearance: awake alert Eye: scleral icterus Neck: no JVD Heart: RRR, no murmur Respiratory - other findings: rhonchi all cordero Gastrointestinal: soft, non-tender, normal bowel sounds Extremities: no edema Hosp A/P (1) Sepsis due to Streptococcus species with acute liver failure Code(s): A40.9 - STREPTOCOCCAL SEPSIS, UNSPECIFIED; R65.20 - SEVERE SEPSIS WITHOUT SEPTIC SHOCK; K72.00 - ACUTE AND SUBACUTE HEPATIC FAILURE WITHOUT COMA Status: Acute Qualifiers: Hepatic coma status: unspecified Severe sepsis shock status: with septic shock Qualified Code(s): A40.9 - Streptococcal sepsis, unspecified; R65.21 - Severe sepsis with septic shock; K72.00 - Acute and subacute hepatic failure without coma (2) Hepatic encephalopathy Code(s): K72.90 - HEPATIC FAILURE, UNSPECIFIED WITHOUT COMA Status: Acute (3) Cirrhosis, alcoholic Code(s): K70.30 - ALCOHOLIC CIRRHOSIS OF LIVER WITHOUT ASCITES Status: Chronic Qualifiers: Ascites presence: unspecified Qualified Code(s): K70.30 - Alcoholic cirrhosis of liver without ascites (4) Acute renal failure Status: Resolved Qualifiers: Acute renal failure type: unspecified Qualified Code(s): N17.9 - Acute kidney failure, unspecified (5) Acute respiratory failure Code(s): J96.00 - ACUTE RESPIRATORY FAILURE, UNSP W HYPOXIA OR HYPERCAPNIA Status: Resolved Qualifiers: Respiratory failure complication: hypoxia Qualified Code(s): J96.01 - Acute respiratory failure with hypoxia (6) GIB (gastrointestinal bleeding) Code(s): K92.2 - GASTROINTESTINAL HEMORRHAGE, UNSPECIFIED Status: Acute Qualifiers: GI bleed type/associated pathology: unspecified gastrointestinal hemorrhage type Qualified Code(s): K92.2 - Gastrointestinal hemorrhage, unspecified (7) Varices, esophageal Code(s): I85.00 - ESOPHAGEAL VARICES WITHOUT BLEEDING Status: Acute Qualifiers: Esophageal varices type: unspecified type Esophageal varices bleeding: with bleeding Qualified Code(s): I85.01 - Esophageal varices with bleeding - Plan eencephalopathy resoled cont lactulose, vitamins cont rocephin, solu-medrol cont duoneb echecardiogram pending
[2020-06-28] MEDS: Folic Acid 1 MG TAB PO SCH (10:36)
[2020-06-28] MEDS: Multivitamin W/ Minerals 1 TAB PO SCH (10:36)
[2020-06-28] MEDS: Thiamine 100 MG TAB PO SCH (10:36)
[2020-06-28] MEDS: Magnesium Oxide 400 MG TAB PO SCH (10:36)
[2020-06-28] MEDS: Pantoprazole 40 MG VIAL IVP SCH ×2 (10:37→21:11)
[2020-06-28] MEDS: methylPREDNISolone Sod Succ 40 MG VIAL IVP SCH ×2 (10:37→21:16)
[2020-06-28] MEDS: cefTRIAXone\\ROCEPHIN 2 GM in Sodium Chloride 0.9% 100 ML IVPB SCH (10:41)
[2020-06-28] MEDS: Multivitamins, Adult 10 ML, Folic Acid 1 MG, Thiamine HCl 100 MG in Dextrose 5 %-0.45 %... IV SCH (11:48)
[2020-06-28] MEDS: Cefepime 1 GM in Sodium Chloride 0.9% 100 ML IVPB SCH (11:59)
--- NOTE | 2020-06-28 12:45 | PRG ---
DATE OF SERVICE: 06/28/2020 SUBJECTIVE: Patient was seen and examined at bedside and overnight events noted. Patient denies any shortness of breath or chest pain or palpitation. No history of nausea or vomiting or diarrhea or fever or chills or cramps. OBJECTIVE: General: This is a well-built female, in no apparent distress. Vital Signs: Temperature 98.8. Heart rate 95. Respiratory rate 20. Blood pressure 105/64. HEENT: Atraumatic, normocephalic. Oral mucosa is moist. Neck: Supple. Cardiovascular: S1, S2 heard. Rate and rhythm regular. Respiratory: Clear to auscultation. Gastrointestinal: Abdomen is soft. Musculoskeletal: No tenderness. No edema. Dermatologic: No skin rash. Neurologic: Alert and awake and oriented x3. No focal neurologic deficits. Moving all the extremities. Psychiatric: Mood and affect normal. LABORATORY DATA: Potassium 3.2, sodium 148, chloride 116, bicarb , creatinine 0.5. ASSESSMENT AND PLAN: 1. Acute kidney injury, stable. 2. Hypernatremia. 3. Hypokalemia. 4. History of hypertension. 5. Altered mentation. 6. No acute indication for dialysis. Okay to remove dialysis catheter. Continue free water as tolerated. Replace potassium with caution and monitor labs. Job ID: [id number]
--- NOTE | 2020-06-28 16:31 | PRG ---
DATE OF SERVICE: 06/28/2020 REASON FOR CONSULTATION: Cirrhosis, altered mental status/hepatic encephalopathy, bleeding esophageal varices. SUBJECTIVE: This morning, the patient states that she is feeling better with less abdominal discomfort when compared to yesterday. She also endorses that her mind feels bit more clear when compared to yesterday. She was able to appropriately answer the sensorium questions this morning when she could not yesterday; however, during the course of the conversation, she did ask a question about a person that was not part of the family nor was in the room, prompting questioning by her family member that was at bedside about who this person really is. Per nursing staff, she had been having multiple semi-solid/liquid bowel movements with approximately 6 to 7 over the last 24 hours. Otherwise, she states that she is doing well with no complaints of nausea, vomiting, fevers, chills, hematemesis, melena, hematochezia, dysphagia, odynophagia, or abdominal pain. OBJECTIVE: VITAL SIGNS: Temperature 98.7, pulse 101, blood pressure 109/66, respiratory rate 21, saturating 100% on room air. GENERAL: The patient was lying in bed, in no acute distress. Alert and oriented x3. CARDIOVASCULAR: Tachycardic rate, but regular rhythm. RESPIRATORY: Clear to auscultation bilaterally. ABDOMEN: Normoactive bowel sounds. Soft. Mild to moderate abdominal distention with no tenderness to palpation. Mildly tense to palpation. EXTREMITIES: No cyanosis, clubbing, or edema. LABORATORY DATA: CBC with a white blood cell count of 15.8, hemoglobin 8.9, hematocrit 27.6, platelets 87. Chemistry with a sodium of 148, potassium 3.2, chloride 116, CO2 of 24, BUN 9, creatinine 0.51, glucose 155, AST 106, ALT 86, alkaline phosphatase 97, total bilirubin 5.8. IMAGING DATA: No current GI imaging is available for review. ASSESSMENT AND PLAN: The patient is a 49-year-old female with past medical history of hyperlipidemia, asthma, and alcoholic cirrhosis complicated by hepatic encephalopathy, abdominal ascites, and now bleeding esophageal varices, now status post band ligation x2. GI bleeding/esophageal variceal bleeding: The patient initially presented with severe confusion and nausea/vomiting prior to admission. On review of her labs in the ER, she was noted to have a severe anemia with a hemoglobin of 3.7. She subsequently underwent upper endoscopy on June 22, 2020, with the presence of grade 3 esophageal varices with high-risk stigmata bleeding in addition to a large amount of retained blood within the stomach. With these findings, it was concerning for esophageal varix bleeding, so subsequently she underwent band ligation x2. Since that time, she has had a relatively stable H and H with no further episodes of hematemesis nor has she had any melena. She completed octreotide therapy and is currently on proton pump inhibitor daily as part of treatment for these bleeding esophageal varices. Ultimately, she will need to be placed on nonselective beta-blockade, but we will consider this prior to discharge. 1. Recommendations: a. Would continue to trend her H and H and transfuse as necessary to maintain an H and H of 05/14. b. Continue to monitor clinically for signs of active GI bleeding. c. Continue PPI 40 mg IV b.i.d. d. Continue to avoid any anticoagulation in this patient given recent massive GI bleed. e. We will consider placing the patient on nonselective beta-blockade within the next 24 hours with a goal of maintaining a heart rate of 55 to 65 beats per minute and a systolic blood pressure greater than 100 mmHg. Altered mental status: The patient initially presented with altered mental status as well as her significantly low hemoglobin, which could further contribute to worsening hepatic encephalopathy. She was placed on aggressive lactulose administration and while she had normalization of her ammonia fairly quickly, she continued to have disorientation and confusion. Currently, she is slowly getting better in terms of her sensorium and cognition being more aware and alert of her surroundings; however, she does continue to have episodes of confusion as evidenced by addressing a person who was not in the room during conversation today. Her concurrent diagnosis of streptococcal bacteremia could also be contributing to her altered mental status as well. 1. Recommendations: a. Would refrain from placing the patient on any benzodiazepines or consciousness altering medications. b. Would decrease the lactulose to 20 g b.i.d. with a goal of having 3 to 4 bowel movements daily. c. Antibiotics per primary team as part of treatment for her streptococcal bacteremia. Ascites: The patient is also presenting with increased abdominal ascites as part of the sequela of her cirrhosis based on physical examination today. She does appear moderately tense to palpation in addition to increased abdominal distention and may be abdominal discomfort. She has not been placed on any diuretic therapy as of yet given her hypotension associated with GI bleeding and streptococcal bacteremia. Instead, I would consider a paracentesis for removal of any fluid for therapeutic purposes. 1. Recommendations: a. Would order paracentesis today as part of therapeutic purposes. b. Would consider placing the patient on spironolactone 50 mg daily and furosemide 20 mg daily as part of diuretic therapy here in the near future. c. We will continue to follow. Please call with any questions. Job ID: [id number]
--- NOTE | 2020-06-28 16:38 | ULT ---
Ultrasound-guided paracentesis: HISTORY: Cirrhosis and recurrent ascites FINDINGS: Informed consent obtained prior to the procedure. Preprocedural imaging demonstrated intrap eritoneal free fluid. An area was marked in the midline infraumbilical location, and then meticulously prepped and draped i n normal sterile fashion and anesthetized with 1% buffered lidocaine. With direct sonographic guidance, a 19-gauge needle and 5 [place] Yueh catheter were advanced into the abdomen. After the return of fluid, the catheter was advanced, and the needle was removed. Approximately 1.2 L of clear straw-colored fluid was aspirated. The introducer sheath was removed, a nd hemostasis was achieved with direct pressure. A dry sterile dressing was placed. The patient tolerated the procedure well and without immediate complication. IMPRESSION: Technically successful ultrasound-guided paracentesis.
[2020-06-28 18:06] LABS: RBC Count-Automated (BF) 136 /cu.mm; WBC/Nucleated-Auto (BF) 79 uL
[2020-06-28 18:32] LABS: BF Color Yellow; Body Fluid Source Ascites Body Fluid; Clarity Hazy (Clear); Tube # EDTA
[2020-06-28 18:34] LABS: BF Segmented Neutrophils 11 %; Cell Count Non Hematic 82 %; Lymphocytes 7 %
[2020-06-29 04:00] LABS: #Neutrophils 16.3 thou/uL (1.40-6.50); %Basophils 0.1 % (0.0-1.0); %Eosinophils 0.1 % (0.0-10.0); %Lymphocytes 5.5 % (21.0-51.0); %Monocytes 5.7 % (0.0-10.0); %Neutrophils 88.7 % (42.0-75.0); Hemoglobin 9.8 g/dL (12.0-16.0); Mean Corpuscular Hemoglobin 32.9 pg (27.0-31.0); Mean Platelet Volume 8.7 fL (7.4-10.4); Platelet Count 96 thou/uL (130-400); RBC Distribution Width 17.7 % (11.5-14.5); Red Blood Cell (RBC) Count 2.96 mill/uL (4.20-5.40); White Blood Cell (WBC) Count 18.3 thou/uL (4.8-10.8)
[2020-06-29 04:08] LABS: ALT (SGPT) 88 U/L (8-55); AST (SGOT) 120 U/L (5-34); Albumin 2.3 g/dL (3.5-5.0); Alkaline Phosphatase 115 U/L (40-110); Anion Gap 12 mmol/L (10-20); BUN (Urea Nitrogen) 13 mg/dL (7.0-18.7); Bilirubin, Total 5.4 mg/dL (0.2-1.2); Calc. Creatinine Clearance 83 mL/min (70-130); Calcium 7.8 mg/dL (7.8-10.44); Carbon Dioxide 21 mmol/L (22-29); Chloride 112 mmol/L (98-107); Estimated GFR-MDRD Greater than 90; Globulin 3.2 g/dL (2.4-3.5); Glucose 154 mg/dL (70-105); Potassium 3.5 mmol/L (3.5-5.1); Protein, Total 5.5 g/dL (6.0-8.3); Sodium 141 mmol/L (136-145)
[2020-06-29 04:10] LABS: Phosphorus 2.6 mg/dL (2.3-4.7)
[2020-06-29] MEDS: Multivitamins, Adult 10 ML, Folic Acid 1 MG, Thiamine HCl 100 MG in Dextrose 5 %-0.45 %... IV SCH (05:25)
[2020-06-29] MEDS ORDERED: Potassium Chloride 20 MEQ TAB PO SCH (07:30)
[2020-06-29] MEDS: Pantoprazole 40 MG VIAL IVP SCH ×2 (08:20→20:19)
[2020-06-29] MEDS: methylPREDNISolone Sod Succ 40 MG VIAL IVP SCH ×2 (08:20→20:19)
[2020-06-29] MEDS: Thiamine 100 MG TAB PO SCH (08:21)
[2020-06-29] MEDS: Folic Acid 1 MG TAB PO SCH (08:21)
[2020-06-29] MEDS: Multivitamin W/ Minerals 1 TAB PO SCH (08:21)
[2020-06-29] MEDS: Magnesium Oxide 400 MG TAB PO SCH (08:21)
[2020-06-29] MEDS: cefTRIAXone\\ROCEPHIN 2 GM in Sodium Chloride 0.9% 100 ML IVPB SCH (08:46)
--- NOTE | 2020-06-29 12:54 | PRG ---
DATE OF SERVICE: 06/29/2020 SUBJECTIVE: Patient was seen and examined at bedside and overnight events noted. Patient denies any shortness of breath or chest pain or palpitation. No history of nausea or vomiting or diarrhea or fever or chills or cramps. OBJECTIVE: GENERAL: This is a well-built female, in no apparent distress. VITAL SIGNS: Temperature 99.2. Heart rate 105. Respiratory rate . Blood pressure 117/60. HEENT: Atraumatic, normocephalic. Oral mucosa is moist NECK: Supple. CARDIOVASCULAR: S1, S2 heard. Rate and rhythm regular. RESPIRATORY: Clear to auscultation. GASTROINTESTINAL: Abdomen is soft. MUSCULOSKELETAL: No tenderness. No edema. DERMATOLOGIC: No skin rash. NEUROLOGIC: Alert and awake and oriented X3. No focal neurologic deficits. Moving all the extremities. PSYCHIATRIC: Mood and affect normal. LABORATORY DATA: Sodium 141, potassium 3.5, BUN is 13, creatinine 0.5. ASSESSMENT AND PLAN: 1. Acute kidney injury, much better. 2. Hypernatremia, better. 3. Hypokalemia, replaced. 4. Altered mentation, better. 5. Hypertension. Labs are much better. Continue free water as tolerated. We will follow. Job ID: [id number]
--- NOTE | 2020-06-29 14:26 | PRG ---
DATE OF SERVICE: 06/29/2020 SUBJECTIVE: Ms. Riley has no new complaints. OBJECTIVE: VITAL SIGNS: She is afebrile, blood pressure 117/60, heart rate 105, oximetry is 94% to 97%. LUNGS: Clear. HEART: Regular rhythm. ABDOMEN: Soft. IMAGING STUDIES: Echocardiogram shows normal left ventricle. IMPRESSION: 1. Volume overload. 2. Aspiration pneumonia. 3. History of heavy alcohol use. 4. History of heavy tobacco use. 5. Status post gastrointestinal bleed. Interestingly, she said she noticed that something was wrong several days prior to admission. She was sitting looking at the bottom of her feet . She said they are almost as white as a sheet of paper. Hemoglobin admission of 3.7 would be consistent with that. We will continue supportive care. She says that she has made up her mind that she is not going to smoke or drink anymore. Job ID: [id number]
--- NOTE | 2020-06-29 14:29 | PDOC.HOSPP ---
- Subjective Encounter Date: 06/29/20 Encounter Time: 11:20 Subjective: Patient doing well. Her spouse at bedside. She is able to take her medications with applesauce. Speech therapy is planned to visit her. Will monitor her this afternoon. If she is continued to exhibit clinical stability then will transfer her to the stroke unit tomorrow. Will follow with the speech recommendations. - Objective Vital Signs & Weight: Vital Signs (12 hours) Temp Pulse Resp Pulse Ox 06/29/20 11:35 99.2 F 06/29/20 10:26 103 H 22 H 06/29/20 08:12 97.7 F 06/29/20 07:20 98 06/29/20 06:45 97 20 06/29/20 03:45 98.1 F Weight Admit Weight 92 lb Weight 92 lb 9.506 oz Most Recent Monitor Data Heart Rate from ECG 102 NIBP 118/61 NIBP BP-Mean 80 Respiration from ECG 22 SpO2 97 I&O: 06/28/20 06/29/20 06/30/20 06:59 06:59 06:59 Intake Total 4736 3858 250 Output Total 1327 1380 Balance 3409 2478 250 Result Diagrams: 06/29/20 03:32 06/29/20 03:32 Hospitalist ROS - Medication Medications: Active Medications Generic Name Dose Route Start Last Admin Trade Name Terryq PRN Reason Stop Dose Admin Albuterol/Ipratropium 3 ml 06/27/20 14:30 06/29/20 10:26 Duoneb NEB 3 ml [id number] JOSE Administration Folic Acid 1 mg 06/25/20 09:00 06/29/20 08:21 Folvite PO 1 mg DAILY JOSE Administration Norepinephrine Bitartrate 250 mls @ 0 mls/hr 06/22/20 21:04 06/23/20 16:50 Levophed IVPB 250 mls INF JOSE Administration Protocol Titrate Multivitamins 10 ml/ Folic 1,011.2 mls @ 100 mls/hr 06/26/20 10:00 06/29/20 05:25 Acid 1 mg/ Thiamine HCl 100 mg IV 1,011.2 mls / Dextrose/Sodium Chloride 1000 JOSE Administration Ceftriaxone Sodium 2 gm/ 100 mls @ 200 mls/hr 06/27/20 09:45 06/29/20 08:46 Sodium Chloride IVPB 100 mls Q24HR JOSE Administration Iron/Minerals/Multivitamins 1 tab 06/25/20 09:00 06/29/20 08:21 Theragran M PO 1 tab DAILY JOSE Administration Lactulose 20 gm 06/28/20 21:00 06/29/20 08:21 Lactulose PO 20 gm BID JOSE Administration Magnesium Oxide 400 mg 06/25/20 09:00 06/29/20 08:21 Magnesium Oxide PO 400 mg DAILY JOSE Administration Methylprednisolone Sodium Succinate 40 mg 06/27/20 21:00 06/29/20 08:20 Solu-Medrol IVP 06/30/20 21:01 40 mg BID JOSE Administration Pantoprazole Sodium 40 mg 06/23/20 21:00 06/29/20 08:20 Protonix IVP 40 mg Q12HR JOSE Administration Sodium Chloride 10 ml 06/22/20 21:00 06/29/20 08:21 Flush - Normal Saline IVF 10 ml Q12HR JOSE Administration Thiamine HCl 100 mg 06/25/20 09:00 06/29/20 08:21 Thiamine PO 100 mg DAILY JOSE Administration - Exam General Appearance: NAD, awake alert Eye: PERRL ENT: normocephalic atraumatic Neck: supple Heart: RRR Respiratory: CTAB, normal chest expansion Gastrointestinal: soft, normal bowel sounds Neurological: cranial nerve grossly intact Psychiatric: A&O x 3 Hosp A/P - Plan epsis due to Streptococcus species with acute liver failure Code(s): A40.9 - STREPTOCOCCAL SEPSIS, UNSPECIFIED; R65.20 - SEVERE SEPSIS WITHOUT SEPTIC SHOCK; K72.00 - ACUTE AND SUBACUTE HEPATIC FAILURE WITHOUT COMA Status: Acute Qualifiers: Hepatic coma status: unspecified Severe sepsis shock status: with septic shock Qualified Code(s): A40.9 - Streptococcal sepsis, unspecified; R65.21 - Severe sepsis with septic shock; K72.00 - Acute and subacute hepatic failure without coma (2) Hepatic encephalopathy Code(s): K72.90 - HEPATIC FAILURE, UNSPECIFIED WITHOUT COMA Status: Acute (3) Cirrhosis, alcoholic Code(s): K70.30 - ALCOHOLIC CIRRHOSIS OF LIVER WITHOUT ASCITES Status: Chronic Qualifiers: Ascites presence: unspecified Qualified Code(s): K70.30 - Alcoholic cirrhosis of liver without ascites (4) Acute renal failure Status: Resolved Qualifiers: Acute renal failure type: unspecified Qualified Code(s): N17.9 - Acute kidney failure, unspecified (5) Acute respiratory failure Code(s): J96.00 - ACUTE RESPIRATORY FAILURE, UNSP W HYPOXIA OR HYPERCAPNIA Status: Resolved Qualifiers: Respiratory failure complication: hypoxia Qualified Code(s): J96.01 - Acute respiratory failure with hypoxia (6) GIB (gastrointestinal bleeding) Code(s): K92.2 - GASTROINTESTINAL HEMORRHAGE, UNSPECIFIED Status: Acute Qualifiers: GI bleed type/associated pathology: unspecified gastrointestinal hemorrhage type Qualified Code(s): K92.2 - Gastrointestinal hemorrhage, unspecified (7) Varices, esophageal Code(s): I85.00 - ESOPHAGEAL VARICES WITHOUT BLEEDING Status: Acute Qualifiers: Esophageal varices type: unspecified type Esophageal varices bleeding: with bleeding Qualified Code(s): I85.01 - Esophageal varices with bleeding Echo showed EF of 60% with a normal right ventricular and left ventricular function mild to moderate left atrial dilated Tatian normal aortic wall and a trace tricuspid regurgitation. I do not think any restrictions are any dysphagia. We will resume the diet after speech therapy evaluation. Plan to transfer to medical floor when she is more stable.
--- NOTE | 2020-06-29 17:21 | PRG ---
DATE OF SERVICE: 06/29/2020 REASON FOR CONSULTATION: Cirrhosis, altered mental status/hepatic encephalopathy, bleeding esophageal varices, status post band ligation. SUBJECTIVE: The patient did not experience any acute events or problems overnight. Per nursing staff, she did have approximately 2 to 3 bowel movements over the last 24 hours since being transferred out of CCU. She did undergo paracentesis with approximately 1.2 L of fluid removed. Today, she states that she is feeling better and was able to answer sensorium questions appropriately. Otherwise, she denies any nausea, vomiting, fevers, chills, hematemesis, melena, hematochezia, dysphagia, odynophagia, or abdominal pain. OBJECTIVE: VITAL SIGNS: Temperature 98, pulse 101, blood pressure 104/61, respiratory rate 18, saturating 97% on room air. GENERAL: The patient was lying in bed, in no acute distress. Alert and oriented x4. CARDIOVASCULAR: Tachycardic rate, but regular rhythm. RESPIRATORY: Clear to auscultation bilaterally. ABDOMEN: Normoactive bowel sounds. Soft. [id number] abdominal distention with no tenderness to palpation. EXTREMITIES: No cyanosis, clubbing, or edema. LABORATORY DATA: CBC with a white blood cell count of 18.3, hemoglobin 9.8, hematocrit 30.5, platelets 96. Chemistry with a sodium of 141, potassium 3.5, chloride 112, CO2 of 21, BUN 13, creatinine 0.54, glucose 154. AST 120, ALT 88, alkaline phosphatase 115, total bilirubin 5.4. IMAGING DATA: The patient underwent paracentesis on June 28, 2020, which showed increase of intra-abdominal fluid consistent with ascites with approximately 1.2 L of fluid removed. ASSESSMENT AND PLAN: The patient is a 49-year-old female with past medical history of hyperlipidemia, asthma, and alcoholic cirrhosis complicated by hepatic encephalopathy, abdominal ascites, and now bleeding esophageal varices, now status post band ligation x2. GI bleeding/esophageal varices: On admission, the patient was noted to have a significant anemia with a hemoglobin of 3.7, so she underwent upper endoscopy on June 22, 2020, with the presence of grade 3 esophageal varices with high-risk stigmata indicative of possible bleeding. She subsequently underwent band ligation x2 and since that time has had a stable H and H with no further episodes of GI bleeding. Recommendations: 1. Would continue to trend her H and H and transfuse as necessary to maintain an H and H of 7/21. 2. Continue to monitor clinically for signs of active GI bleeding. 3. Continue PPI 40 mg IV b.i.d. until seen in outpatient GI clinic. 4. Continue to avoid any anticoagulation in this patient given massive recent GI bleed unless clinically indicated. 5. Would consider starting the patient on propranolol 10 mg b.i.d. tomorrow as part of nonselective beta-blockade with the goal of a heart rate of 55 to 65 beats per minute with a systolic blood pressure greater than 100 mmHg. Altered mental status: The patient also presented with an altered mental status, most likely exacerbated by GI bleed with aggressive lactulose therapy. She had normalization of her ammonia fairly quickly, but continued to have some disorientation and confusion. However, she is slowly improving in terms of her sensorium and cognition, but does continue to have some episodes of confusion per the patient's spouse at bedside today. Recommendations: 1. Would refrain from placing the patient on any benzodiazepines or conscious altering medications. 2. Continue lactulose 20 g b.i.d. with a goal of having 3 to 4 bowel movements daily. 3. Antibiotics as per primary team for her streptococcal bacteremia. Ascites: The patient also presented with increased abdominal ascites based on imaging and physical examination. She underwent paracentesis yesterday with approximately 1.2 L of fluid removed at that time with labs not indicative of spontaneous bacterial peritonitis. She has not been placed on any diuretic therapy as of yet given her hypotension associated with GI bleeding or streptococcal bacteremia, but this may need to be started as an outpatient for reaccumulation of any fluids. Recommendations: 1. We will consider placing the patient on spironolactone 50 mg daily and furosemide 20 mg daily as part of diuretic therapy, but this can be started in the outpatient clinic. 2. Would advance the patient's diet to a low-sodium, high-protein diet. We will continue to follow. Please call with any questions. Job ID: [id number]
[2020-06-30 03:46] LABS: INR-International Normal Ratio 1.5; Prothrombin Time 17.7 sec (12.0-14.7)
[2020-06-30 04:03] LABS: ALT (SGPT) 84 U/L (8-55); AST (SGOT) 104 U/L (5-34); Albumin 2.4 g/dL (3.5-5.0); Alkaline Phosphatase 121 U/L (40-110); Anion Gap 13 mmol/L (10-20); BUN (Urea Nitrogen) 12 mg/dL (7.0-18.7); Bilirubin, Total 5.7 mg/dL (0.2-1.2); Calc. Creatinine Clearance 87 mL/min (70-130); Carbon Dioxide 19 mmol/L (22-29); Chloride 110 mmol/L (98-107); Estimated GFR-MDRD Greater than 90; Globulin 3.2 g/dL (2.4-3.5); Glucose 137 mg/dL (70-105); Potassium 3.7 mmol/L (3.5-5.1); Protein, Total 5.6 g/dL (6.0-8.3); Sodium 138 mmol/L (136-145)
[2020-06-30 04:16] LABS: Band 11 % (5-11); Hypochromia SLIGHT = 6-15 cells (100X) (0-5/hpf); Lymphocytes 4 % (21-51); MDiff Complete? YES; Macrocytosis SLIGHT = 6-15 cells (100X) (0-5/hpf); Mean Corpuscular HGB CONC 32.4 g/dL (32.0-36.0); Mean Corpuscular Hemoglobin 33.5 pg (27.0-31.0); Mean Platelet Volume 9.2 fL (7.4-10.4); Monocytes 3 % (0-10); Neutrophil 82 % (42-75); Nucleated RBC 1 % (0); Platelet Count 135 thou/uL (130-400); Platelet Morphology Comment Appears Adequate; Red Blood Cell (RBC) Count 2.99 mill/uL (4.20-5.40); White Blood Cell (WBC) Count 25.4 thou/uL (4.8-10.8)
[2020-06-30] MEDS: Magnesium Oxide 400 MG TAB PO SCH (10:13)
[2020-06-30] MEDS: Folic Acid 1 MG TAB PO SCH (10:13)
[2020-06-30] MEDS: Thiamine 100 MG TAB PO SCH (10:14)
[2020-06-30] MEDS: methylPREDNISolone Sod Succ 40 MG VIAL IVP SCH (10:14)
[2020-06-30] MEDS: Multivitamin W/ Minerals 1 TAB PO SCH (10:14)
[2020-06-30] MEDS: Pantoprazole 40 MG VIAL IVP SCH ×2 (10:15→20:05)
[2020-06-30] MEDS ORDERED: Bacteriostatic Water 30 ML VIAL FS PRN (10:23)
[2020-06-30] MEDS: cefTRIAXone\\ROCEPHIN 2 GM in Sodium Chloride 0.9% 100 ML IVPB SCH (10:24)
[2020-06-30] MEDS: Multivitamins, Adult 10 ML, Folic Acid 1 MG, Thiamine HCl 100 MG in Dextrose 5 %-0.45 %... IV SCH (10:24)
[2020-06-30] MEDS ORDERED: Furosemide 40 MG/4 ML VIAL SLOW IVP SCH (10:30)
--- NOTE | 2020-06-30 11:03 | RAD ---
PORTABLE CHEST 1 VIEW: DATE: 06/30/2020. TIME: 10:54 AM. HISTORY: High WBC count. COMPARISON: 06/27/2020. FINDINGS/IMPRESSION: The heart size is prominent but stable. Diffuse bilateral mixed infiltrates are again seen. No pneu mothoraces or pleural effusions are identified. There has been interval removal of the nasogastric t ube. POS: OFF
--- NOTE | 2020-06-30 11:28 | PRG ---
DATE OF SERVICE: SUBJECTIVE: Charlotte Riley has no complaints. She says she is feeling better. OBJECTIVE: VITAL SIGNS: Heart rate is 115, blood pressure 115/58, respiratory rates in the high 20s. LUNGS: Clear. HEART: Regular rhythm. ABDOMEN: Distended. EXTREMITIES: Without asymmetry. LABORATORY DATA: White count 25.4, hemoglobin 10, platelets 135,000. Sodium 138, potassium 3.7, chloride 110, bicarb 19, BUN 12, creatinine 0.51. Intake and outputs positive She has not been weighed in several days. She is probably up 10 L in volume since she was admitted. IMPRESSION: 1. Liver dysfunction secondary to heavy alcohol use. 2. Aspiration pneumonia. 3. Heavy tobacco use. 4. Status post gastrointestinal bleed. It would not be unreasonable to start diuresing here. She could be switched to p.o. antimicrobial therapy in my opinion. Steroid dosing will be decreased Job ID: [id number]
[2020-06-30 12:59] LABS: Bilirubin Negative (Negative); Blood, Urine Negative (Negative); Clarity Clear (Clear); Glucose, Urine (Dipstick) Normal (Negative); Ketone, Urine Negative (Negative); Leukocyte Negative Leu/uL (Negative); Nitrite Negative (Negative); Protein, Urine (Dipstick) Negative (Neg-Trace); Specific Gravity, Urine 1.006 (1.002-1.036); Urobilinogen Normal mg/dL (Less than 2); pH, Urine 5.5 (5.0-9.0)
--- NOTE | 2020-06-30 13:54 | PDOC.HOSPP ---
- Subjective Encounter Date: 06/30/20 Encounter Time: 11:40 Subjective: Patient is resting well. She has no complaints. Tolerating her diet. Quite weak. Discussed with RN. She is stable to go to the medical floor will discontinue the Blanco will place the physical therapy consult. - Objective Vital Signs & Weight: Vital Signs (12 hours) Temp Pulse Resp Pulse Ox 06/30/20 11:33 99.0 F 06/30/20 11:23 107 H 25 H 93 L 06/30/20 08:00 95 06/30/20 07:32 99.4 F 06/30/20 07:07 106 H 23 H 94 L 06/30/20 03:42 99.4 F 06/30/20 02:45 100 22 H 94 L Weight Admit Weight 92 lb Weight 92 lb 9.506 oz Most Recent Monitor Data Heart Rate from ECG 119 NIBP 123/62 NIBP BP-Mean 82 Respiration from ECG 27 SpO2 86 I&O: 06/29/20 06/30/20 07/01/20 06:59 06:59 06:59 Intake Total 3858 1610 Output Total 1380 700 700 Balance 2478 910 -700 Result Diagrams: 06/30/20 03:20 06/30/20 03:20 Hospitalist ROS - Medication Medications: Active Medications Generic Name Dose Route Start Last Admin Trade Name Terryq PRN Reason Stop Dose Admin Albuterol/Ipratropium 3 ml 06/27/20 14:30 06/30/20 11:23 Duoneb NEB 3 ml [id number] JOSE Administration Folic Acid 1 mg 06/25/20 09:00 06/30/20 10:13 Folvite PO 1 mg DAILY JOSE Administration Multivitamins 10 ml/ Folic 1,011.2 mls @ 100 mls/hr 06/26/20 10:00 06/30/20 10:24 Acid 1 mg/ Thiamine HCl 100 mg IV 1,011.2 mls / Dextrose/Sodium Chloride 1000 JOSE Administration Iron/Minerals/Multivitamins 1 tab 06/25/20 09:00 06/30/20 10:14 Theragran M PO 1 tab DAILY JOSE Administration Lactulose 20 gm 06/28/20 21:00 06/30/20 10:14 Lactulose PO 20 gm BID JOSE Administration Magnesium Oxide 400 mg 06/25/20 09:00 06/30/20 10:13 Magnesium Oxide PO 400 mg DAILY JOSE Administration Pantoprazole Sodium 40 mg 06/23/20 21:00 06/30/20 10:15 Protonix IVP 40 mg Q12HR JOSE Administration Sodium Chloride 10 ml 06/22/20 21:00 06/30/20 10:15 Flush - Normal Saline IVF 10 ml Q12HR JOSE Administration Thiamine HCl 100 mg 06/25/20 09:00 06/30/20 10:14 Thiamine PO 100 mg DAILY JOSE Administration - Exam General Appearance: NAD, awake alert Eye: PERRL ENT: normocephalic atraumatic Neck: supple Heart: RRR, normal peripheral pulses Respiratory: CTAB, normal chest expansion Gastrointestinal: soft, normal bowel sounds Neurological: no focal deficits, no new deficit Psychiatric: A&O x 3 Hosp A/P - Plan epsis due to Streptococcus species with acute liver failure Code(s): A40.9 - STREPTOCOCCAL SEPSIS, UNSPECIFIED; R65.20 - SEVERE SEPSIS WITHOUT SEPTIC SHOCK; K72.00 - ACUTE AND SUBACUTE HEPATIC FAILURE WITHOUT COMA Status: Acute Qualifiers: Hepatic coma status: unspecified Severe sepsis shock status: with septic shock Qualified Code(s): A40.9 - Streptococcal sepsis, unspecified; R65.21 - Severe sepsis with septic shock; K72.00 - Acute and subacute hepatic failure without coma (2) Hepatic encephalopathy Code(s): K72.90 - HEPATIC FAILURE, UNSPECIFIED WITHOUT COMA Status: Acute (3) Cirrhosis, alcoholic Code(s): K70.30 - ALCOHOLIC CIRRHOSIS OF LIVER WITHOUT ASCITES Status: Chronic Qualifiers: Ascites presence: unspecified Qualified Code(s): K70.30 - Alcoholic cirrhosis of liver without ascites (4) Acute renal failure Status: Resolved Qualifiers: Acute renal failure type: unspecified Qualified Code(s): N17.9 - Acute kidney failure, unspecified (5) Acute respiratory failure Code(s): J96.00 - ACUTE RESPIRATORY FAILURE, UNSP W HYPOXIA OR HYPERCAPNIA Status: Resolved Qualifiers: Respiratory failure complication: hypoxia Qualified Code(s): J96.01 - Acute respiratory failure with hypoxia (6) GIB (gastrointestinal bleeding) Code(s): K92.2 - GASTROINTESTINAL HEMORRHAGE, UNSPECIFIED Status: Acute Qualifiers: GI bleed type/associated pathology: unspecified gastrointestinal hemorrhage type Qualified Code(s): K92.2 - Gastrointestinal hemorrhage, unspecified (7) Varices, esophageal Code(s): I85.00 - ESOPHAGEAL VARICES WITHOUT BLEEDING Status: Acute Qualifiers: Esophageal varices type: unspecified type Esophageal varices bleeding: with bleeding Qualified Code(s): I85.01 - Esophageal varices with bleeding Echo showed EF of 60% with a normal right ventricular and left ventricular function mild to moderate left atrial dilated Tatian normal aortic wall and a trace tricuspid regurgitation. I do not think any restrictions are any dysphagia. We will resume the diet after speech therapy evaluation. Plan to transfer to medical floor when she is more stable. 6th Tolerating her diet. Quite weak. Discussed with RN. She is stable to go to the medical floor will discontinue the Blanco will place the physical therapy consult.
--- NOTE | 2020-06-30 14:04 | PRG ---
DATE OF SERVICE: 06/30/2020 SUBJECTIVE: Patient was seen and examined at bedside and overnight events noted. Patient denies any shortness of breath or chest pain or palpitation. No history of nausea or vomiting or diarrhea or fever or chills or cramps. OBJECTIVE: GENERAL: This is a well-built female, in no apparent distress. VITAL SIGNS: reviewed. HEENT: Atraumatic, normocephalic. Oral mucosa is moist NECK: Supple. CARDIOVASCULAR: S1, S2 heard. Rate and rhythm regular. RESPIRATORY: Clear to auscultation. GASTROINTESTINAL: Abdomen is soft. MUSCULOSKELETAL: No tenderness. No edema. DERMATOLOGIC: No skin rash. NEUROLOGIC: Alert and awake and oriented X3. No focal neurologic deficits. Moving all the extremities. PSYCHIATRIC: Mood and affect normal. LABORATORY DATA: Potassium 3.7, sodium 138, creatinine is 0.5. ASSESSMENT AND PLAN: 1. Acute kidney injury, much better. 2. Hypernatremia, better. 3. Hypokalemia, stable. 4. Altered mentation. 5. Hypertension. Labs are better. I will sign off. Please call back with any questions. Job ID: [id number]
[2020-06-30] MEDS ORDERED: Spironolactone 25 MG TAB PO SCH (17:30)
--- NOTE | 2020-06-30 17:44 | PRG ---
DATE OF SERVICE: 06/30/2020 REASON FOR CONSULTATION: Cirrhosis, altered mental status/hepatic encephalopathy, bleeding esophageal varices, now status post band ligation. SUBJECTIVE: Per nursing staff, the patient did not have any acute events or problems overnight. She has had approximately 3 semi-solid to liquid bowel movements over the course of the day today as well. Otherwise, she is actually in very good spirits and feeling better when compared to yesterday. She also has been able to answer sensorium questions appropriately. Otherwise, she denies any nausea, vomiting, fevers, chills, hematemesis, melena, hematochezia, dysphagia, or odynophagia. OBJECTIVE: VITAL SIGNS: Temperature 100, pulse 109, blood pressure 110/60, respiratory rate 18, and saturating 93% on 2 L nasal cannula. GENERAL: The patient was lying in bed, in no acute distress. Alert and oriented x4. CARDIOVASCULAR : Tachycardic rate, but regular rhythm. RESPIRATORY: Clear to auscultation bilaterally. ABDOMEN: Normoactive bowel sounds. Soft. Mild abdominal distention with no tenderness to palpation. EXTREMITIES: No cyanosis, clubbing, or edema. LABORATORY DATA: CBC with a white blood cell count of 25.4, hemoglobin 10, hematocrit 30.9, and platelets 135. INR 1.5. Chemistry with a sodium of 138, potassium 3.7, chloride 110, CO2 of 19, BUN 12, creatinine 0.51, and glucose 137. AST 104, ALT 84, alkaline phosphatase 121, total bilirubin 5.7, and calculated MELD score of 19. IMAGING DATA: No current GI imaging is available for review. ASSESSMENT AND PLAN: The patient is a 49-year-old female with past medical history of hyperlipidemia, asthma, and alcoholic cirrhosis, complicated by hepatic encephalopathy, abdominal ascites, and now with bleeding esophageal varices status post band ligation x2. 1. Gastrointestinal bleeding/esophageal varices. On admission, the patient was noted to have a significant anemia with a hemoglobin of 3.7, and subsequently underwent upper endoscopy on 06/22/2020. During the course of the procedure, there were grade 3 esophageal varices with high-risk stigmata seen in the distal esophagus, subsequently underwent band ligation x2. Since that time, her hemoglobin and hematocrit have been relatively stable with no further episodes of gastrointestinal bleeding. Recommendations: a. Would continue to trend her hemoglobin and hematocrit and transfuse as necessary to maintain the hemoglobin and hematocrit of 7/21. b. Continue to monitor clinically for signs of active gastrointestinal bleeding. c. Continue proton pump inhibitor 40 mg twice daily until seen in the outpatient GI Clinic. d. Continue to avoid any anticoagulation unless clinically indicated. e. Would start the patient on propranolol 10 mg twice daily as part of nonselective beta blockade with the goal of a heart rate between 55 to 65 beats per minute and a systolic blood pressure greater than 100 mmHg. 2. Altered mental status: The patient also presented with altered mental status, most likely exacerbated by gastrointestinal bleed; however, with aggressive lactulose therapy, she has had normalization of both her ammonia and cognition. However, she does continue to have some episodes of memory recall problems and mild confusion despite lactulose administration. Recommendations: a. Continue lactulose 20 g b.i.d. with a goal of having 3 to 4 bowel movements daily. b. Antibiotics per primary team for her Streptococcal bacteremia. 3. Ascites: The patient is also presenting with a history of abdominal ascites, for which she underwent paracentesis on 06/28/2020 with approximately 1.2 L of fluid removed at that time. Analysis of fluid was not indicative of spontaneous bacterial peritonitis. At this time, given her normalization of her blood pressure, restarting her on diuretic therapy is not unreasonable. Recommendations: a. Would restart the patient on spironolactone 50 mg daily and furosemide 20 mg daily with monitoring of renal function. b. Continue the patient on a low-sodium, high-protein diet. We will continue to follow. Please call with any questions. Job ID: [id number]
[2020-06-30] MEDS: Propranolol 10 MG TAB PO SCH (20:05)
[2020-06-30] MEDS: Amoxicillin/Potassium Clav 875 MG TAB PO SCH (20:05)
[2020-06-30] MEDS: Guaifenesin DM 100-10/5 ML UDCUP PO PRN (20:05)
[2020-07-01 06:19] LABS: ALT (SGPT) 76 U/L (8-55); AST (SGOT) 105 U/L (5-34); Albumin 2.4 g/dL (3.5-5.0); Alkaline Phosphatase 140 U/L (40-110); Anion Gap 11 mmol/L (10-20); BUN (Urea Nitrogen) 12 mg/dL (7.0-18.7); Bilirubin, Total 5.7 mg/dL (0.2-1.2); Calc. Creatinine Clearance 95 mL/min (70-130); Calcium 8.1 mg/dL (7.8-10.44); Carbon Dioxide 20 mmol/L (22-29); Chloride 109 mmol/L (98-107); Estimated GFR-MDRD Greater than 90; Globulin 3.4 g/dL (2.4-3.5); Glucose 81 mg/dL (70-105); Potassium 4.2 mmol/L (3.5-5.1); Protein, Total 5.8 g/dL (6.0-8.3); Sodium 136 mmol/L (136-145)
[2020-07-01] MEDS ORDERED: Furosemide 20 MG TAB PO SCH (09:00)
[2020-07-01] MEDS ORDERED: methylPREDNISolone Sod Succ 40 MG VIAL IVP SCH (09:00)
[2020-07-01] MEDS: Amoxicillin/Potassium Clav 875 MG TAB PO SCH ×2 (09:07→21:05)
[2020-07-01] MEDS: Folic Acid 1 MG TAB PO SCH (09:07)
[2020-07-01] MEDS: Magnesium Oxide 400 MG TAB PO SCH (09:08)
[2020-07-01] MEDS: Pantoprazole 40 MG VIAL IVP SCH (09:08)
[2020-07-01] MEDS: Thiamine 100 MG TAB PO SCH (09:08)
[2020-07-01] MEDS: Propranolol 10 MG TAB PO SCH ×2 (09:09→21:07)
[2020-07-01] MEDS: Multivitamin W/ Minerals 1 TAB PO SCH (09:09)
[2020-07-01] MEDS ORDERED: Spironolactone 25 MG TAB PO SCH (10:00)
[2020-07-01 10:28] LABS: Hemoglobin 12.3 g/dL (12.0-16.0); Mean Corpuscular HGB CONC 31.5 g/dL (32.0-36.0); Mean Corpuscular Hemoglobin 32.9 pg (27.0-31.0); Mean Platelet Volume 8.9 fL (7.4-10.4); Platelet Count 175 thou/uL (130-400); RBC Distribution Width 18.2 % (11.5-14.5); Red Blood Cell (RBC) Count 3.74 mill/uL (4.20-5.40); White Blood Cell (WBC) Count 33.3 thou/uL (4.8-10.8)
[2020-07-01 11:03] LABS: Anisocytosis SLIGHT = 6-15 cells (100X) (0-5/hpf); Band 3 % (5-11); Lymphocytes 4 % (21-51); MDiff Complete? YES; Macrocytosis MODERATE=16-30 cells (100X) (0-5/hpf); Monocytes 2 % (0-10); Neutrophil 91 % (42-75); Platelet Morphology Comment Appears Adequate; Polychromasia SLIGHT = 2-3 cells (100X) (0-2/hpf)
[2020-07-01 11:33] VITALS: BMI 18.1
--- NOTE | 2020-07-01 13:48 | PDOC.HOSPP ---
- Subjective Encounter Date: 07/01/20 Encounter Time: 10:50 Subjective: Patient is slightly short of breath. she also has a left eye conjunctive hemorrhage. Spouse at bedside. - Objective Vital Signs & Weight: Vital Signs (12 hours) Temp Pulse Resp BP BP Pulse Ox 07/01/20 12:37 99.5 F 92 24 H 105/62 95 07/01/20 10:20 101 H 28 H 94 L 07/01/20 07:14 99.0 F 99 24 H 109/67 91 L 07/01/20 06:47 92 92 L 07/01/20 04:00 98.6 F 90 18 107/66 07/01/20 02:56 81 20 92 L Weight Admit Weight 92 lb Weight 92 lb 9.506 oz Most Recent Monitor Data Heart Rate from ECG 115 NIBP 118/56 NIBP BP-Mean 76 Respiration from ECG 22 SpO2 95 I&O: 06/30/20 07/01/20 07/02/20 06:59 06:59 06:59 Intake Total 1610 1880 Output Total 700 1403 Balance 910 477 Result Diagrams: 07/01/20 10:07 07/01/20 05:27 Hospitalist ROS - Medication Medications: Active Medications Generic Name Dose Route Start Last Admin Trade Name Freq PRN Reason Stop Dose Admin Albuterol/Ipratropium 3 ml 06/27/20 14:30 07/01/20 10:20 Duoneb NEB 3 ml [id number] JOSE Administration Amoxicillin/Clavulanate Potassium 875 mg 06/30/20 21:00 07/01/20 09:07 Augmentin PO 875 mg Q12HR JOSE Administration Folic Acid 1 mg 06/25/20 09:00 07/01/20 09:07 Folvite PO 1 mg DAILY JOSE Administration Guaifenesin/Dextromethorphan 15 ml 06/22/20 10:27 06/30/20 20:05 Robitussin Dm PO 15 ml Q4H PRN Administration Cough Multivitamins 10 ml/ Folic 1,011.2 mls @ 100 mls/hr 06/26/20 10:00 06/30/20 10:24 Acid 1 mg/ Thiamine HCl 100 mg IV 1,011.2 mls / Dextrose/Sodium Chloride 1000 JOSE Administration Iron/Minerals/Multivitamins 1 tab 06/25/20 09:00 07/01/20 09:09 Theragran M PO 1 tab DAILY JOSE Administration Lactulose 20 gm 06/28/20 21:00 07/01/20 09:08 Lactulose PO 20 gm BID JOSE Administration Pantoprazole Sodium 40 mg 06/23/20 21:00 07/01/20 09:08 Protonix IVP 40 mg Q12HR JOSE Administration Propranolol HCl 10 mg 06/30/20 21:00 07/01/20 09:09 Inderal PO 10 mg BID JOSE Administration Sodium Chloride 10 ml 06/22/20 21:00 07/01/20 09:14 Flush - Normal Saline IVF 10 ml Q12HR JOSE Administration Thiamine HCl 100 mg 06/25/20 09:00 07/01/20 09:08 Thiamine PO 100 mg DAILY JOSE Administration - Exam General Appearance: NAD, awake alert Eye: PERRL ENT: normocephalic atraumatic Neck: supple Heart: RRR, normal peripheral pulses Respiratory: CTAB, normal chest expansion Gastrointestinal: distended Neurological: no focal deficits Psychiatric: A&O x 3 Hosp A/P - Plan sepsis due to Streptococcus species with acute liver failure Code(s): A40.9 - STREPTOCOCCAL SEPSIS, UNSPECIFIED; R65.20 - SEVERE SEPSIS WITHOUT SEPTIC SHOCK; K72.00 - ACUTE AND SUBACUTE HEPATIC FAILURE WITHOUT COMA Status: Acute Qualifiers: Hepatic coma status: unspecified Severe sepsis shock status: with septic shock Qualified Code(s): A40.9 - Streptococcal sepsis, unspecified; R65.21 - Severe sepsis with septic shock; K72.00 - Acute and subacute hepatic failure without coma (2) Hepatic encephalopathy Code(s): K72.90 - HEPATIC FAILURE, UNSPECIFIED WITHOUT COMA Status: Acute (3) Cirrhosis, alcoholic Code(s): K70.30 - ALCOHOLIC CIRRHOSIS OF LIVER WITHOUT ASCITES Status: Chronic Qualifiers: Ascites presence: unspecified Qualified Code(s): K70.30 - Alcoholic cirrhosis of liver without ascites (4) Acute renal failure Status: Resolved Qualifiers: Acute renal failure type: unspecified Qualified Code(s): N17.9 - Acute kidney failure, unspecified (5) Acute respiratory failure Code(s): J96.00 - ACUTE RESPIRATORY FAILURE, UNSP W HYPOXIA OR HYPERCAPNIA Status: Resolved Qualifiers: Respiratory failure complication: hypoxia Qualified Code(s): J96.01 - Acute respiratory failure with hypoxia Echo showed EF of 60% with a normal right ventricular and left ventricular function mild to moderate left atrial dilated Tatian normal aortic wall and a trace tricuspid regurgitation. I do not think any restrictions are any dysphagia. We will resume the diet after speech therapy evaluation. Plan to transfer to medical floor when she is more stable. 6th Tolerating her diet. Quite weak. Discussed with RN. She is stable to go to the medical floor will discontinue the Blanco will place the physical therapy consult. 7th Shortness of breath along with abdominal distention DuoNeb every 4 as needed which may not help in her case given her cirrhosis probably causing likely more ascites buildup--diuretics as below GIB (gastrointestinal bleeding) Significant anemia with a hemoglobin of 3.7 due to GI bleed Varices, esophageal -Status post EGD on June 22 -She also noted to have esophageal varices during the EGD and she has undergone band ligation x2 -PPI twice daily -Outpatient follow-up with the GI clinic -Propofol 10 mg twice daily-as long as heart rate and blood pressure allows -Starting Spironolactone 50 mg daily as well as Lasix 20 mg daily per GI recommendation
--- NOTE | 2020-07-01 14:06 | PRG ---
DATE OF SERVICE: 07/01/2020 SUBJECTIVE: The patient is up, ambulating with physical therapy. She is still short of breath and needing oxygen. OBJECTIVE: VITAL SIGNS: Temperature 99.5, pulse 92, respirations 24, saturating 95%, blood pressure 105/62. HEENT: Unremarkable. NECK: No JVD. LUNGS: Diminished breath sounds at the bases. CARDIAC: S1, S2. Regular. ABDOMEN: Soft. EXTREMITIES: No edema. LABORATORY DATA: Sodium 136, potassium 4.2, BUN 12, creatinine 0.5, and glucose 81. White blood cell count 33, hematocrit 39, and platelet count 175. ASSESSMENT: 1. Hypoxic respiratory failure. 2. Cirrhosis. 3. Aspiration pneumonia. 4. Tobacco abuse. PLAN: 1. Wean oxygen as tolerated. 2. Finish out antibiotics. 3. Wean prednisone over a week or 2. Job ID: [id number]
[2020-07-01] MEDS: Multivitamins, Adult 10 ML, Folic Acid 1 MG, Thiamine HCl 100 MG in Dextrose 5 %-0.45 %... IV SCH (16:25)
[2020-07-01] MEDS: Guaifenesin DM 100-10/5 ML UDCUP PO PRN (21:38)
--- NOTE | 2020-07-01 22:27 | PRG ---
DATE OF SERVICE: 07/01/2020 REASON FOR CONSULTATION: Cirrhosis, altered mental status/hepatic encephalopathy, bleeding esophageal varices, now status post band ligation. SUBJECTIVE: Per nursing staff and per the patient, there were no acute events or problems overnight. She continues to tolerate a pureed diet well, although does not tolerate the taste very well, so has had limited intake in that regard. She continues to have approximately 3 to 4 semi-solid to liquid bowel movements daily with lactulose administration. Otherwise, she denies any nausea, vomiting, fevers, chills, hematemesis, melena, hematochezia, dysphagia, or odynophagia. OBJECTIVE: VITAL SIGNS: Temperature 97.7, pulse 84, blood pressure 96/53, respiratory rate 20, saturating 96% on 3 L nasal cannula. GENERAL: The patient was lying in bed, in no acute distress. Alert and oriented x4. CARDIOVASCULAR: Regular rate and rhythm. RESPIRATORY: Clear to auscultation bilaterally. ABDOMEN: Normoactive bowel sounds. Soft. Mild abdominal distention with no tenderness to palpation. EXTREMITIES: No cyanosis, clubbing, or edema. LABORATORY DATA: Chemistry with a sodium of 136, potassium 4.2, chloride 109, CO2 of 20, BUN 12, creatinine 0.47, glucose 81, AST 105, ALT 76, alkaline phosphatase 140, total bilirubin 5.7. IMAGING DATA: No current GI imaging is available for review. ASSESSMENT AND PLAN: The patient is a 49-year-old female with past medical history of hyperlipidemia, asthma, and alcoholic cirrhosis complicated by hepatic encephalopathy, abdominal ascites, and now bleeding esophageal varices, status post band ligation x2. Gastrointestinal bleeding/esophageal varices: The patient initially presented with significant anemia with a hemoglobin of 3.7, and subsequently underwent upper endoscopy on June 22, 2020, with the finding of large varices, underwent band ligation x2. Since intervention, she has had no further derangements in her H and H as well as no clinical evidence of GI bleeding. Recommendations: 1. We would continue to trend her H and H and transfuse as necessary to maintain an H and H of 7/21. 2. Continue to monitor clinically for signs of active GI bleeding. 3. Can change the patient over to pantoprazole 40 mg orally twice daily until seen in the outpatient GI Clinic. 4. Continue to avoid any anticoagulation unless clinically indicated. 5. Continue the patient on propranolol 10 mg twice daily. Altered mental status: The patient initially presented with altered mental status, now resolved with lactulose administration. Recommendations: 1. Continue lactulose 20 g b.i.d. with a goal of having 3 to 4 bowel movements daily. 2. Antibiotics per primary team for streptococcal bacteremia. Ascites: The patient initially presented with abdominal ascites with paracentesis performed on June 28, 2020, with no evidence of SBP at this time and with normalization of her blood pressure. She has been able to tolerate diuretic therapy thus far with no difficulty. Recommendations: 1. Continue spironolactone 50 mg daily and furosemide 20 mg daily with monitoring of renal function. 2. Continue low-sodium, high-protein diet, although would consider reconsulting speech pathology and bedside swallow test to advance her diet to a more solid diet if indicated. We have no additional recommendations. We will sign off at this time. Please have the patient follow up in the GI clinic in 2 to 3 weeks after discharge. Please call with any additional questions. Job ID: [id number]
[2020-07-02 06:15] LABS: Anion Gap 12 mmol/L (10-20); BUN (Urea Nitrogen) 16 mg/dL (7.0-18.7); Calc. Creatinine Clearance 89 mL/min (70-130); Calcium 7.7 mg/dL (7.8-10.44); Carbon Dioxide 18 mmol/L (22-29); Chloride 109 mmol/L (98-107); Estimated GFR-MDRD Greater than 90; Glucose 86 mg/dL (70-105); Sodium 135 mmol/L (136-145)
[2020-07-02] MEDS ORDERED: predniSONE 20 MG TAB PO SCH (08:00)
[2020-07-02] MEDS ORDERED: Spironolactone 25 MG TAB PO SCH (08:00)
[2020-07-02] MEDS: Spironolactone 25 MG TAB PO SCH (08:52)
[2020-07-02] MEDS: Thiamine 100 MG TAB PO SCH (08:52)
[2020-07-02] MEDS: Folic Acid 1 MG TAB PO SCH (08:52)
[2020-07-02] MEDS: Amoxicillin/Potassium Clav 875 MG TAB PO SCH ×2 (08:52→20:22)
[2020-07-02] MEDS: Multivitamin W/ Minerals 1 TAB PO SCH (08:52)
[2020-07-02] MEDS: Furosemide 20 MG TAB PO SCH (08:53)
[2020-07-02] MEDS ORDERED: Furosemide 40 MG TAB PO SCH (09:00)
--- NOTE | 2020-07-02 09:39 | PRG ---
DATE OF SERVICE: 07/02/2020 SUBJECTIVE: This morning, she is awake, alert, responsive, less agitated. She is eating her breakfast without any issues. Saturations are 96% on 2 L. Her last x-ray showed interstitial edema with an elevated BNP, suggest fluid overload, though echo was normal. OBJECTIVE: VITAL SIGNS: Temperature 98, pulse respiratory rate 20, blood pressure 90/59. CHEST: No wheezing. No crackles. CARDIAC: Normal S1, S2. No gallops. ABDOMEN: No masses. LABORATORY DATA: White count 33,000. Lytes are normal. ASSESSMENT AND PLAN: Respiratory failure, interstitial pneumonia, aspiration pneumonia. Continue antibiotics, low-dose steroids. Continue lactulose. Supportive care, PT. Eventually home. Job ID: [id number]
--- NOTE | 2020-07-02 11:39 | PDOC.HOSPP ---
- Subjective Encounter Date: 07/02/20 Encounter Time: 10:20 Subjective: Patient did he ambulated a little bit today. She has less short of breath with exertion. Talked to the spouse. Will get ambulatory oxygen status. GI signed off. - Objective Vital Signs & Weight: Vital Signs (12 hours) Temp Pulse Resp BP BP Pulse Ox 07/02/20 10:44 84 16 07/02/20 08:00 92 L 07/02/20 07:09 98.4 F 87 20 92/59 L 92 L 07/02/20 06:52 72 16 07/02/20 02:10 81 20 96 07/01/20 23:41 98.3 F 81 20 102/61 Weight Admit Weight 92 lb Weight 92 lb 9.506 oz Most Recent Monitor Data Heart Rate from ECG 115 NIBP 118/56 NIBP BP-Mean 76 Respiration from ECG 22 SpO2 95 I&O: 07/01/20 07/02/20 07/03/20 06:59 06:59 06:59 Intake Total 1880 780 Output Total 1403 Balance 477 780 Result Diagrams: 07/01/20 10:07 07/02/20 05:08 Hospitalist ROS - Medication Medications: Active Medications Generic Name Dose Route Start Last Admin Trade Name Freq PRN Reason Stop Dose Admin Albuterol/Ipratropium 3 ml 06/27/20 14:30 07/02/20 10:44 Duoneb NEB 3 ml [id number] JOSE Administration Amoxicillin/Clavulanate Potassium 875 mg 06/30/20 21:00 07/02/20 08:52 Augmentin PO 875 mg Q12HR JOSE Administration Folic Acid 1 mg 06/25/20 09:00 07/02/20 08:52 Folvite PO 1 mg DAILY JOSE Administration Furosemide 20 mg 07/02/20 09:00 07/02/20 08:53 Lasix PO 20 mg DAILY JOSE Administration Guaifenesin/Dextromethorphan 15 ml 06/22/20 10:27 07/01/20 21:38 Robitussin Dm PO 15 ml Q4H PRN Administration Cough Iron/Minerals/Multivitamins 1 tab 06/25/20 09:00 07/02/20 08:52 Theragran M PO 1 tab DAILY JOSE Administration Lactulose 20 gm 06/28/20 21:00 07/02/20 08:53 Lactulose PO 20 gm BID JOSE Administration Propranolol HCl 10 mg 06/30/20 21:00 07/01/20 21:07 Inderal PO 10 mg BID JOSE Administration Sodium Chloride 10 ml 06/22/20 21:00 07/02/20 08:54 Flush - Normal Saline IVF 10 ml Q12HR JOSE Administration Spironolactone 50 mg 07/02/20 08:00 07/02/20 08:52 Aldactone PO 50 mg QAM-WM JOSE Administration Thiamine HCl 100 mg 06/25/20 09:00 07/02/20 08:52 Thiamine PO 100 mg DAILY JOSE Administration - Exam General Appearance: NAD, awake alert Eye: PERRL ENT: normocephalic atraumatic Neck: supple Heart: RRR Respiratory: CTAB, normal chest expansion Gastrointestinal: soft, normal bowel sounds, distended Neurological: no focal deficits Psychiatric: A&O x 3 Hosp A/P - Plan sepsis due to Streptococcus species with acute liver failure Code(s): A40.9 - STREPTOCOCCAL SEPSIS, UNSPECIFIED; R65.20 - SEVERE SEPSIS WITHOUT SEPTIC SHOCK; K72.00 - ACUTE AND SUBACUTE HEPATIC FAILURE WITHOUT COMA Status: Acute Qualifiers: Hepatic coma status: unspecified Severe sepsis shock status: with septic shock Qualified Code(s): A40.9 - Streptococcal sepsis, unspecified; R65.21 - Severe sepsis with septic shock; K72.00 - Acute and subacute hepatic failure without coma (2) Hepatic encephalopathy Code(s): K72.90 - HEPATIC FAILURE, UNSPECIFIED WITHOUT COMA Status: Acute (3) Cirrhosis, alcoholic Code(s): K70.30 - ALCOHOLIC CIRRHOSIS OF LIVER WITHOUT ASCITES Status: Chronic Qualifiers: Ascites presence: unspecified Qualified Code(s): K70.30 - Alcoholic cirrhosis of liver without ascites (4) Acute renal failure Status: Resolved Qualifiers: Acute renal failure type: unspecified Qualified Code(s): N17.9 - Acute kidney failure, unspecified (5) Acute respiratory failure Code(s): J96.00 - ACUTE RESPIRATORY FAILURE, UNSP W HYPOXIA OR HYPERCAPNIA Status: Resolved Qualifiers: Respiratory failure complication: hypoxia Qualified Code(s): J96.01 - Acute respiratory failure with hypoxia Echo showed EF of 60% with a normal right ventricular and left ventricular function mild to moderate left atrial dilated Tatian normal aortic wall and a trace tricuspid regurgitation. I do not think any restrictions are any dysphagia. We will resume the diet after speech therapy evaluation. Plan to transfer to medical floor when she is more stable. 6th Tolerating her diet. Quite weak. Discussed with RN. She is stable to go to the medical floor will discontinue the Blanco will place the physical therapy consult. 7th Shortness of breath along with abdominal distention DuoNeb every 4 as needed which may not help in her case given her cirrhosis probably causing likely more ascites buildup--diuretics as below GIB (gastrointestinal bleeding) Significant anemia with a hemoglobin of 3.7 due to GI bleed Varices, esophageal -Status post EGD on June 22 -She also noted to have esophageal varices during the EGD and she has undergone band ligation x2 -PPI twice daily -Outpatient follow-up with the GI clinic -Propofol 10 mg twice daily-as long as heart rate and blood pressure allows -Starting Spironolactone 50 mg daily as well as Lasix 20 mg daily per GI recommendation 8th Will assess her on ambulatory oxygen status. Continue with a low-sodium high-protein diet She is on healthy heart low-sodium diet Follow-up with the GI clinic in 3 weeks Plan for discharge tomorrow.
[2020-07-02] MEDS: Propranolol 10 MG TAB PO SCH ×2 (12:22→20:38)
[2020-07-03 05:46] LABS: #Eosinphils 0.6 thou/uL (0.0-0.7); #Lymphocytes 1.6 thou/uL (1.20-3.40); #Neutrophils 14.3 thou/uL (1.40-6.50); %Basophils 0.2 % (0.0-1.0); %Eosinophils 3.2 % (0.0-10.0); %Lymphocytes 9.2 % (21.0-51.0); %Monocytes 5.7 % (0.0-10.0); %Neutrophils 81.7 % (42.0-75.0); Hemoglobin 10.5 g/dL (12.0-16.0); Mean Corpuscular HGB CONC 31.9 g/dL (32.0-36.0); Mean Corpuscular Hemoglobin 33.8 pg (27.0-31.0); Mean Platelet Volume 8.6 fL (7.4-10.4); Platelet Count 111 thou/uL (130-400); RBC Distribution Width 17.7 % (11.5-14.5); Red Blood Cell (RBC) Count 3.09 mill/uL (4.20-5.40); White Blood Cell (WBC) Count 17.4 thou/uL (4.8-10.8)
[2020-07-03] MEDS ORDERED: predniSONE 20 MG TAB PO SCH (08:00)
[2020-07-03] MEDS: Folic Acid 1 MG TAB PO SCH (08:04)
[2020-07-03] MEDS: Multivitamin W/ Minerals 1 TAB PO SCH (08:04)
[2020-07-03] MEDS: Amoxicillin/Potassium Clav 875 MG TAB PO SCH (08:04)
[2020-07-03] MEDS: Thiamine 100 MG TAB PO SCH (08:05)
[2020-07-03] MEDS: Propranolol 10 MG TAB PO SCH (08:06)
[2020-07-03] MEDS: Furosemide 20 MG TAB PO SCH (08:06)
[2020-07-03] MEDS: Spironolactone 25 MG TAB PO SCH (08:06)
--- NOTE | 2020-07-03 09:40 | PRG ---
DATE OF SERVICE: 07/03/2020 SUBJECTIVE: Charlotte Riley is a 49-year-old female. This morning, she is much better, off oxygen. OBJECTIVE: VITAL SIGNS: Sats 95%, pulse 78, temperature 97, blood pressure 99/61. CHEST: Decreased breath sounds. No wheezing. CARDIAC: Normal S1, S2. No gallops. ABDOMEN: No masses. LABORATORY DATA: White count 17,000. ASSESSMENT AND PLAN: Presumed aspiration pneumonia, fluid overloaded, gastrointestinal bleed, severe anemia, ascites. She remains slightly hypotensive. I may consider decreasing her diuretics. Pulmonary negron, nothing additional to offer. She can be discharged home any time. Follow up with primary care physician and oncologist. Job ID: [id number]
[2020-07-03 11:59] VITALS: BP 97/61; TEMP 97.8
--- NOTE | 2020-07-04 06:36 | DIS ---
DATE OF ADMISSION: 06/22/2020 DATE OF DISCHARGE: 07/03/2020 DISCHARGE DIAGNOSES: Sepsis secondary to Streptococcus species with acute liver failure, hepatic encephalopathy, alcoholic cirrhosis, acute renal failure, acute respiratory failure. MEDICATIONS: Her home medications did not change including; 1. Lactulose 20 g daily. 2. Folic acid 1 mg daily. 3. Spironolactone 50 mg daily. 4. Lasix 40 mg daily. The new medication is Augmentin 875 mg twice a day for five more days. CONSULT: GI. PHYSICAL EXAMINATION: VITAL SIGNS: Temperature 97.9, pulse 86, blood pressure is 99/61, satting 99% on room air. GENERAL: The patient is participating with physical therapy. She is doing well. No acute distress. She has spouse and another family member who would be able to help her as needed/she has a good social support. HEENT: She still has left eye conjunctivitis without any purulent discharge. CARDIOVASCULAR: Regular rate and rhythm without murmurs, rubs, or gallops. LUNGS: Clear to auscultation bilaterally without wheezing, rales, or rhonchi. ABDOMEN: Soft, nontender, nondistended. Good bowel sounds. EXTREMITIES: Without much pitting edema. PERTINENT LABORATORY DATA: Ascitic fluid Gram stain, WBCs, but no organisms. Blood culture is Streptococcus salivarius, it is a venous culture, and she is discharged with Augmentin to complete the course. HOSPITAL COURSE: This is a 49-year-old female with alcoholic cirrhosis, admitted on June 22 for acute GI bleed and severe anemia in the setting of cirrhosis. She has undergone EGD on June 22 noted to have esophageal varices that has ligation x2. She started on diuretics, spironolactone, Lasix, along with propofol twice a day. She tolerated the intervention well. She is not eligible for ambulatory oxygen. She participated in physical therapy without any distress. She will be going home with a walker for balance. She does not require home health. DISCHARGE INSTRUCTIONS: Activity as tolerated. Healthy heart diet with low- sodium and high-protein diet. Follow up with the GI Clinic in 3 weeks. TIME SPENT: Discharge time took over 35 minutes. Job ID: [id number] [facility]
--- NOTE | 2020-07-06 14:23 | EKG ---
Test Reason : Blood Pressure : / mmHG Vent. Rate : 115 BPM Atrial Rate : 115 BPM P-R Int : 136 ms QRS Dur : 086 ms QT Int : 334 ms P-R-T Axes : 052 084 049 degrees QTc Int : 462 ms Sinus tachycardia Otherwise normal ECG Confirmed by RAVINDER HADLEY, MARISSA ([id number]), supervising film or videotape editor MALINA HORAN ([id number]) on 07/06/2020 2:22:42 PM Referred By: Confirmed By:MARISSA CASTELLON MD
== END 2020-07-03 12:29 | disposition home or self-care (01) | DRG 871 ==
LOC: ERS 04:54 → CCU 09:50 → IMCU/EMU 06-28 11:45 → T4-A 06-30 16:01
PROVIDERS: ADMIT Internal Medicine; ATTEND Internal Medicine
PROC: 06L38CZ Occlusion of Esophageal Vein with Extraluminal Device, Via Natural or Artificial Opening Endoscopic (ICD-10-PCS; principal; 2020-06-22)
PROC: 30233K1 Transfusion of Nonautologous Frozen Plasma into Peripheral Vein, Percutaneous Approach (ICD-10-PCS; 2020-06-22)
PROC: 30233N1 Transfusion of Nonautologous Red Blood Cells into Peripheral Vein, Percutaneous Approach (ICD-10-PCS; 2020-06-22)
PROC: 0BH17EZ Insertion of Endotracheal Airway into Trachea, Via Natural or Artificial Opening (ICD-10-PCS; 2020-06-22)
PROC: 0W9G3ZZ Drainage of Peritoneal Cavity, Percutaneous Approach (ICD-10-PCS; 2020-06-28)
DX: A40.9 Streptococcal sepsis, unspecified (principal); K72.00 Acute and subacute hepatic failure without coma; R57.8 Other shock; J96.00 Acute respiratory failure, unspecified whether with hypoxia or hypercapnia; G93.41 Metabolic encephalopathy; J69.0 Pneumonitis due to inhalation of food and vomit; I85.11 Secondary esophageal varices with bleeding; R65.21 Severe sepsis with septic shock; N17.9 Acute kidney failure, unspecified; E87.2 Acidosis; D68.9 Coagulation defect, unspecified; K76.6 Portal hypertension; E87.1 Hypo-osmolality and hyponatremia; K70.31 Alcoholic cirrhosis of liver with ascites; F41.9 Anxiety disorder, unspecified; F32.9 Major depressive disorder, single episode, unspecified; E87.5 Hyperkalemia; J45.909 Unspecified asthma, uncomplicated; I11.0 Hypertensive heart disease with heart failure; I50.9 Heart failure, unspecified; K31.89 Other diseases of stomach and duodenum; D63.8 Anemia in other chronic diseases classified elsewhere; E88.09 Other disorders of plasma-protein metabolism, not elsewhere classified; E87.8 Other disorders of electrolyte and fluid balance, not elsewhere classified; D69.6 Thrombocytopenia, unspecified; Z20.828 Contact with and (suspected) exposure to other viral communicable diseases
CPT/HCPCS: 31500; 36415; 36430; 36556; 49083; 51702; 70450; 71045; 74022; 80048; 80053; 80306; 80307; 81003; 82140; 82274; 82550; 82553; 82607; 82746; 82805; 83605; 83690; 83735; 83880; 84100; 84443; 84484; 85025; 85060; 85610; 85730; 86850; 86900; 86901; 87040; 87070; 87077; 87149; 87186; 87205; 87340; 87635; 89051; 93005; 93306; 94002; 94003; 94640; 94660; 96361; 96365; 96366; 96367; 96368; 96375; C9113; J0692; J0696; J1815; J1940; J2060; J2354; J2704; J2920; J2930; J3010; J3411; J3475; J3486; J3490; J7042; J7050; J7512; J7620; P9016; P9059; U0003

== ENCOUNTER 2020-07-10 10:08 | Day surgery (SDC) | payer BC ==
[2020-07-09 13:25] VITALS: BMI 21.4
--- NOTE | 2020-07-10 14:23 | ULT ---
Exam: Ultrasound guided paracentesis HISTORY: Ascites COMPARISON: 06/28/2020 FINDINGS: Successful ultrasound-guided paracentesis. Total of 3.8 L of yellow color ascites was aspir ated. TECHNIQUE: Consent obtained reformatory ultrasound-guided paracentesis. Right lower quadrant was deem ed appropriate. Skin was prepped and draped in a sterile fashion. 1% lidocaine, buffered with sodium bicarbonate was used for local anesthesia. Under ultrasound guidance, a 5 Georgian 7 cm Yueh cat heter is advanced in the peritoneal space. A total of 3.8 L of yellow color ascites was aspirated. No immediate or postprocedural complications IMPRESSION: Successful ultrasound-guided paracentesis.
[2020-07-10 14:53] VITALS: BP 93/53; TEMP 98.2
== END 2020-07-10 11:50 | disposition home or self-care (01) ==
LOC: ULT 10:08
PROVIDERS: ATTEND Physician Assistant Medical
PROC: BW40ZZZ Ultrasonography of Abdomen (ICD-10-PCS; principal; 2020-07-10)
PROC: 0W9G3ZZ Drainage of Peritoneal Cavity, Percutaneous Approach (ICD-10-PCS; principal; 2020-07-10)
DX: K70.31 Alcoholic cirrhosis of liver with ascites (principal); K21.9 Gastro-esophageal reflux disease without esophagitis; F41.9 Anxiety disorder, unspecified; F32.9 Major depressive disorder, single episode, unspecified; F17.210 Nicotine dependence, cigarettes, uncomplicated; J45.909 Unspecified asthma, uncomplicated; Z79.899 Other long term (current) drug therapy
CPT/HCPCS: 49083

== ENCOUNTER 2021-01-28 13:37 | Outpatient (CLI) | payer BC | END 2021-01-28 13:38 | disposition home or self-care (01) | LOC: BICMAMMO 13:37 | PROVIDERS: ATTEND Family Medicine | DX: Z12.31 Encounter for screening mammogram for malignant neoplasm of breast (principal); Z91.89 Other specified personal risk factors, not elsewhere classified | CPT/HCPCS: 77063; 77067 ==

== ENCOUNTER 2021-07-02 07:28 | Outpatient (CLI) | payer BC | END 2021-07-02 07:29 | disposition home or self-care (01) | LOC: BICULT 07:28 | PROVIDERS: ATTEND Internal Medicine | DX: K70.30 Alcoholic cirrhosis of liver without ascites (principal); R18.8 Other ascites; I85.00 Esophageal varices without bleeding; K72.90 Hepatic failure, unspecified without coma | CPT/HCPCS: 93975 ==

== ENCOUNTER 2021-08-05 10:47 | Outpatient (CLI) | payer BC, OTHER ==
[2021-08-05] MEDS ORDERED: Magnevist 469MG/ML 20 ML VIAL ONE (16:16)
== END 2021-08-05 10:48 | disposition home or self-care (01) ==
LOC: BICMRI 10:47
PROVIDERS: ATTEND Internal Medicine
DX: K76.89 Other specified diseases of liver (principal); K76.0 Fatty (change of) liver, not elsewhere classified; K80.20 Calculus of gallbladder without cholecystitis without obstruction
CPT/HCPCS: 74183; 82565